=== PATIENT | female | born 1990 | race Caucasian/White ===

== ENCOUNTER 2020-11-14 13:25 | Outpatient (REF) | payer OTHER, SELFPAY | END 2020-11-14 13:26 | disposition home or self-care (01) | LOC: HO.LAB 13:25 | PROVIDERS: Visit Provider Internal Medicine | DX: Z20.822 Contact with and (suspected) exposure to COVID-19 (principal) | CPT/HCPCS: 36415; C9803; U0003 ==

== ENCOUNTER 2020-12-19 15:50 | Outpatient (REF) | payer OTHER, SELFPAY | END 2020-12-19 15:51 | disposition home or self-care (01) | LOC: HO.LAB 15:50 | PROVIDERS: Visit Provider Internal Medicine | DX: Z20.822 Contact with and (suspected) exposure to COVID-19 (principal) | CPT/HCPCS: 36415; C9803; U0003; U0005 ==

== ENCOUNTER 2021-07-12 08:17 | Emergency (ER) | payer OTHER, SELFPAY ==
--- NOTE | ~2021-07-12 | CT_ITS ---
EXAMINATION: CT ABDOMEN AND PELVIS WITH CONTRAST CLINICAL INFORMATION: Right-sided pain and nausea COMPARISON: Previous abdominal ultrasound most recent October [address] of the abdomen and pelvis February 2007 TECHNIQUE: Multidetector volumetric images were obtained from the superior aspect of the liver through the pubic symphysis following administration 85 mL of Omnipaque 350 intravenous contrast. Sagittal and coronal reformatted images were obtained on the technologist's workstation. Oral contrast: Yes This CT examination was performed using dose optimization techniques as appropriate, variously including the following: *Automated exposure control *Adjustment of mA and/or kV according to patient size (this includes techniques or standardized protocols for targeted exams where dose is matched to indication/reason for exam; i.e. extremities or head) *Use of iterative reconstruction technique DLP: 473 mGy-cm FINDINGS: LUNG BASES: The visualized lung bases are unremarkable. LIVER, GALLBLADDER, AND BILIARY TREE: The liver is normal in size, shape, and attenuation. No focal hepatic lesion or biliary ductal dilatation is present. The gallbladder is unremarkable with no evidence of radiopaque gallstones, gallbladder wall thickening, or obvious pericholecystic inflammatory changes. PANCREAS: Unremarkable. SPLEEN: Unremarkable. ADRENAL GLANDS: Unremarkable. KIDNEYS AND URETERS: The kidneys are normal in size, shape, and attenuation. No hydronephrosis, hydroureter, or calculi seen. No perinephric stranding. BLADDER: Not optimally distended. GASTROINTESTINAL TRACT: The small and large bowel are unremarkable. The appendix is unremarkable. ABDOMINAL WALL: There is a small umbilical hernia containing fat. LYMPH NODES: Normal. VASCULAR: Unremarkable. PELVIC VISCERA: Unremarkable. OSSEOUS STRUCTURES: Unremarkable. CT/CT abdomen pelvis w con IMPRESSION: Unremarkable exam.
[2021-07-12 08:20] VITALS: BP 104/73; PULSE 75; RESP 16; TEMP 36.3; O2SAT 98; BMI 29.2
[2021-07-12] MEDS: 0.9 % Sodium Chloride 1,000 ML 999 ML IV ×2 (09:18→11:25)
[2021-07-12] MEDS: ondansetron HCL 4 MG/2 ML VIAL IVPUSH (09:18)
[2021-07-12] MEDS: Ketorolac Tromethamine 15 MG/ML VIAL 30 MG IVPUSH (09:18)
[2021-07-12 09:19] LABS: Basophils Percent Auto 0.3 % (0-2); Eosinophils Absolute Auto 0.1 X10*3/uL (0.0-0.4); Hematocrit 42.4 % (37-47); Imm Gran Abs Auto 0.01 X10*3/uL (0.00-0.03); Imm Gran Pct Auto 0.1 % (0.0-0.4); Lymphocytes Absolute Auto 2.4 X10*3/uL (1.2-4.9); Lymphocytes Percent Auto 33.3 % (20-40); MANUAL DIFF FLAG NO; Mean Corpuscular HGB Conc 35.4 g/dl (31.0-35.0); Mean Corpuscular Hemoglobin 31.4 pg (27.0-33.0); Mean Corpuscular Volume 88.9 fL (80-98); Mean Platelet Volume 10.7 fL (9.4-12.3); Monocytes Absolute Auto 0.4 X10*3/uL (0.1-1.2); Monocytes Percent Auto 5.8 % (2-11); Neutrophils Absolute Auto 4.4 X10*3/uL (2.0-8.3); Neutrophils Percent Auto 59.5 % (45-73); Platelet Count 281 X10*3/uL (160-400); Red Blood Count 4.77 X10*6/uL (4.20-5.50); White Blood Count 7.3 X10*3/uL (4.8-10.8)
[2021-07-12 09:35] LABS: Alanine Aminotransferase 11 U/L (0-31); Albumin Level 4.7 g/dL (3.5-5.0); Alkaline Phosphatase 74 U/L (39-117); Anion Gap 15 (12-20); Aspartate Amino Transferase 12 U/L (5-31); Bilirubin Total 0.9 mg/dL (0.0-1.0); Blood Urea Nitrogen 5 mg/dL (9-16); Carbon Dioxide 24 mmol/L (22-29); Chloride 106 mmol/L (96-108); Creatinine Clr Calc Pharmacy 96.6; Estimated Glomerular Filt Rate > 60; Glucose Random 98 mg/dL (60-115); Lipase 12 U/L (8-78); Potassium 3.9 mmol/L (3.3-5.1); Sodium 141 mmol/L (135-145); Total Protein 7.1 g/dL (6.5-8.0)
[2021-07-12 10:44] LABS: Glucose Urine UA NEG (NEG); Leukocyte Esterase Urine NEG (NEG); Nitrite Urine NEG (NEG); Specific Gravity - Urine 1.015 (1.005-1.025); Urine Blood NEG (NEG); Urine Protein NEG (NEG-TRACE)
[2021-07-12 10:47] LABS: Appearance Urine HAZY; Color Urine YELLOW
[2021-07-12 10:48] LABS: Urine Ketones 15 MG/DL (NEG)
[2021-07-12 10:49] LABS: UPreg QC Valid YES; Urine Pregnancy NEGATIVE (NEGATIVE)
--- NOTE | 2021-07-12 11:06 | ED_ITS ---
HPI - Abdominal Pain General Chief Complaint: Abdominal Pain Stated Complaint: DEHYDRATION Time Seen by Provider: 07/12/21 08:29 Source: patient Mode of arrival: ambulatory Limitations: no limitations History of Present Illness HPI narrative: 30-year-old female who presents emergency department for evaluation of abdominal pain, nausea and dizziness. The patient states that she has been experiencing abdominal pain for approximately 3 months. She states that is gotten worse over the past month. She points to her right upper quadrant and mid epigastric area when asked to localize the pain. The pain is a intermittent cramping sensation that she gets daily and will last all day but does resolve at some point. She states that she has associated nausea constantly with 1 or 2 episodes of vomiting usually in the morning She denied any change in her bowel movements. She states that currently the pain is 10/10. The patient believes that she has lost a significant amount of weight however she states that she was 1 year prior and she is not sure if the weight loss is related to her . She denied fever but occasionally experiences chills. She states that she is constantly lightheaded and dizzy. The patient states that she has also been under stress and has had multiple panic attacks over the past 3-4 months. She states that in the past has been treated with Seroquel and this helped her sleep and help with her anxiety. The patient states that she does smoke 7 pre year old marijuana cigarettes per day and she has done this for years. She has had no abdominal surgeries. She is a G5, P5, she does not believe that she is at this time. Related Data Previous Rx's Medication Instructions Recorded omeprazole 20 mg tablet,delayed 20 mg PO DAILY #30 tab 07/12/21 release ondansetron 4 mg disintegrating 4 mg PO Q6-8H PRN #14 tab 07/12/21 tablet Allergies Allergy/AdvReac Type Severity Reaction Status Date / Time lamotrigine AdvReac Unknown Agitated Verified 07/12/21 08:24 Review of Systems Review of Systems Yes all other systems are reviewed and are negative Physical Exam Vital Signs: Vital Signs: Last Vital Signs Temp 97.3 F 07/12/21 08:20 Pulse 75 07/12/21 08:20 Resp 16 07/12/21 08:20 BP 104/73 07/12/21 08:20 Pulse Ox 98 07/12/21 08:20 Body Mass Index 29.2 Const: General: cooperative and no acute distress Orientation/consciousness: oriented to person and oriented to place Limitations: no limitations HENMT: Head: Yes normal to inspection, Yes normocephalic and Yes atraumatic Ears: external ears normal General nose exam: Normal external nose present Face and sinus: Yes normal facial exam Mouth: Normal oral and palatal mucosa present Throat: Yes posterior oropharynx normal Eyes: General: appearance normal, both eyes and all related structures Pupils: Equal, round and reactive pupils present Neck: Neck: Yes normal visual inspection, Yes no lymphadenopathy, Yes trachea midline and Yes supple Chest: Chest palpation & inspection: normal inspection of the chest and normal palpation of entire chest wall Resp: Effort & Inspection: normal respiratory effort and able to speak in complete sentences Auscultation: clear to auscultation bilaterally Cardio: Rate: regular rate Rhythm: regular rhythm Heart sounds: S1 normal heart sound present, S2 normal heart sound present and no murmurs GI: Inspection: Yes normal to inspection Palpation (GI): Soft to palpation, Tenderness to palpation present (GI) in the epigastrum (Moderate) and in the RUQ (Moderate, negative Freedman sign) and no guarding Auscultation: normal bowel sounds : General: Yes no CVA tenderness Back/Spine/Pelvis: Back: no CVA tenderness Skin: General skin exam: no rashes or lesions noted Neuro: General: oriented to person and oriented to place Cranial nerves: Yes CN's II-XII intact bilaterally and Yes Equal, round and reactive pupils present Cognition (Neuro): normal cognition Motor exam (neuro): 5/5 motor strength present throughout Extrem: General: Yes normal to inspection Psych: Appearance: grossly normal Speech and movement: Normal speech and mo vement present Affect: normal affect Attitude: cooperative Thought process: Normal thought process present Thought content: Normal thought content present Course Course Course Narrative: 30-year-old female who presents emergency department for evaluation of abdominal pain x3 months, worse x1 month, persistent nausea with occasional vomiting 1-2 episodes of vomiting in the morning and dizziness. The patient does smoke marijuana 7 times a day. The differential includes esophagitis, gastritis, biliary disease, marijuana hyperemesis syndrome. I did order normal saline x1 L, Toradol 30 mg IV and Zofran 4 mg IV. Laboratory evaluation and CT scan of the abdomen pelvis with IV contrast was also ordered. 1250: Patient's laboratory evaluation was unremarkable. Urine test was negative. CT scan of the abdomen pelvis with IV contrast revealed no acute abnormalities. Patient's symptoms are most likely secondary to gastritis or esophagitis, marijuana may be also playing part in her symptoms I did discuss this with her. Patient was advised to stop smoking marijuana for least 1 month. She was started on Prilosec 20 mg once a day. She is also given prescription for Zofran 4 mg every 8 hours as needed for nausea and vomiting. She was discharged home. The patient was given verbal and printed instructions prior to discharge. The patient was advised to follow-up with her PCP in 2 days and to return to the emergency department if her symptoms get worse or if she develops any new symptoms that are concerning to her. MDM - Abdominal Pain Lab Data Result diagrams: 07/12/21 09:14 07/12/21 09:14 Labs: Lab Results 07/12/21 07/12/21 07/12/21 Range/Units 09:14 09:14 09:14 WBC 7.3 (4.8-10.8) X10*3/uL RBC 4.77 (4.20-5.50) X10*6/uL Hgb 15.0 (12.0-16.0) g/dl Hct 42.4 (37-47) % MCV 88.9 (80-98) fL MCH 31.4 (27.0-33.0) pg MCHC 35.4 H (31.0-35.0) g/dl RDW 12.0 (11.0-16.0) % Plt Count 281 (160-400) X10*3/uL MPV 10.7 (9.4-12.3) fL Immature Gran % (Auto) 0.1 (0.0-0.4) % Neut % (Auto) 59.5 (45-73) % Lymph % (Auto) 33.3 (20-40) % [place] % (Auto) 5.8 (2-11) % Eos % (Auto) 1.0 (0-4) % Baso % (Auto) 0.3 (0-2) % Lymph # (Auto) 2.4 (1.2-4.9) X10*3/uL [place] # (Auto) 0.4 (0.1-1.2) X10*3/uL Eos # (Auto) 0.1 (0.0-0.4) X10*3/uL Baso # (Auto) 0.0 (0.0-0.2) X10*3/uL Abs Immat Gran (auto) 0.01 (0.00-0.03) X10*3/uL Absolute Neuts (auto) 4.4 (2.0-8.3) X10*3/uL Absolute Nucleated RBC 0.000 (0.0-0.012) X10*3/uL Nucleated RBC % (auto) 0.0 (0.0-0.2) /100WBC Sodium 141 (135-145) mmol/L Potassium 3.9 (3.3-5.1) mmol/L Chloride 106 (96-108) mmol/L Carbon Dioxide 24 (22-29) mmol/L Anion Gap 15 (12-20) BUN 5 L (9-16) mg/dL Creatinine 0.77 (0.5-1.4) mg/dL Estim Creat Clear Calc 96.6 Estimated GFR > 60 Random Glucose 98 (60-115) mg/dL Calcium 10.0 (8.4-10.2) mg/dL Total Bilirubin 0.9 (0.0-1.0) mg/dL AST 12 (5-31) U/L ALT 11 (0-31) U/L Alkaline Phosphatase 74 (39-117) U/L Total Protein 7.1 (6.5-8.0) g/dL Albumin 4.7 (3.5-5.0) g/dL Lipase 12 (8-78) U/L Urine Color Urine Appearance Urine pH (5.0-8.0) Ur Specific [place] (1.005-1.025) Urine Protein (NEG-TRACE) MG/DL Urine Glucose (UA) (NEG) MG/DL Urine Ketones (NEG) MG/DL Urine Blood (NEG) Urine Nitrite (NEG) Ur Leukocyte Esterase (NEG) Urine Test (NEGATIVE) 07/12/21 07/12/21 Range/Units 10:35 10:35 WBC (4.8-10.8) X10*3/uL RBC (4.20-5.50) X10*6/uL Hgb (12.0-16.0) g/dl Hct (37-47) % MCV (80-98) fL MCH (27.0-33.0) pg MCHC (31.0-35.0) g/dl RDW (11.0-16.0) % Plt Count (160-400) X10*3/uL MPV (9.4-12.3) fL Immature Gran % (Auto) (0.0-0.4) % Neut % (Auto) (45-73) % Lymph % (Auto) (20-40) % [place] % (Auto) (2-11) % Eos % (Auto) (0-4) % Baso % (Auto) (0-2) % Lymph # (Auto) (1.2-4.9) X10*3/uL [place] # (Auto) (0.1-1.2) X10*3/uL Eos # (Auto) (0.0-0.4) X10*3/uL Baso # (Auto) (0.0-0.2) X10*3/uL Abs Immat Gran (auto) (0.00-0.03) X10*3/uL Absolute Neuts (auto) (2.0-8.3) X10*3/uL Absolute Nucleated RBC (0.0-0.012) X10*3/uL Nucleated RBC % (auto) (0.0-0.2) /100WBC Sodium (135-145) mmol/L Potassium (3.3-5.1) mmol/L Chloride (96-108) mmol/L Carbon Dioxide (22-29) mmol/L Anion Gap (12-20) BUN (9-16) mg/dL Creatinine (0.5-1.4) mg/dL Estim Creat Clear Calc Estimated GFR Random Glucose (60-115) mg/dL Calcium (8.4-10.2) mg/dL Total Bilirubin (0.0-1.0) mg/dL AST (5-31) U/L ALT (0-31) U/L Alkaline Phosphatase (39-117) U/L Total Protein (6.5-8.0) g/dL Albumin (3.5-5.0) g/dL Lipase (8-78) U/L Urine Color YELLOW Urine Appearance HAZY Urine pH 6.0 (5.0-8.0) Ur Specific [place] 1.015 (1.005-1.025) Urine Protein NEG (NEG-TRACE) MG/DL Urine Glucose (UA) NEG (NEG) MG/DL Urine Ketones 15 (NEG) MG/DL Urine Blood NEG (NEG) Urine Nitrite NEG (NEG) Ur Leukocyte Esterase NEG (NEG) Urine Test NEGATIVE (NEGATIVE) Discharge Plan Discharge Clinical Impression: Acute hyperventilation syndrome Gastritis Qualifiers: Gastritis type: unspecified gastritis Chronicity: acute Gastritis bleeding: without bleeding Qualified Code(s): K29.00 - Acute gastritis without bleeding Patient Disposition: Home, Self-Care Instructions: Hyperventilation (ED), Gastritis (ED) Additional Instructions: Your laboratory evaluation was normal. The CT scan of your abdomen pelvis with IV contrast did not reveal any significant abnormalities. This negative workup is reassuring. Your symptoms are consistent with inflammation of your stomach or your esophagus (gastritis and esophagitis). Take Prilosec (omeprazole) 20 mg pills, 1 pill once a day for 1 month. This medication shuts off the acid production in her stomach and help her stomach and esophagus heal. Take Zofran oral dissolving tablets 4 mg, 1 tablet dissolved in your mouth every 8 hours as needed for nausea and vomiting. Do not take any NSAIDs (ibuprofen, Motrin, Advil, Aleve, or naproxen) while you are taking Prilosec. Take Tylenol (acetaminophen) 500 mg pills, 2 pills every 4 to 6 hours as needed for pain. You should discuss treatment of your anxiety a and your insomnia with your doctor to see if they will restart Seroquel or another medication that will help you with the symptoms. Follow-up with your doctor in 2 days. Please return to the emergency department if your symptoms get worse or if you develop any symptoms that are concerning to you. Prescriptions: New ondansetron 4 mg tablet,disintegrating 4 mg PO Q6-8H PRN (Reason: nausea and vomiting) Qty: 14 RF: 0 omeprazole 20 mg tablet,delayed release (DR/EC) 20 mg PO DAILY Qty: 30 RF: 0 PMFSH Past Medical History Medical History (Updated 07/12/21 @ 12:54 by Irineo Hernandez MD) No known health problems Social History Social History Use of substances other than those prescribed or required for medical reasons: Yes Substance Use Type: Marijuana Advance Directives: No Advance Directives Information Provided: No Patient : No
[2021-07-12] MEDS: Morphine Sulfate 4 MG/ML CARTRIDGE IVPUSH (11:22)
[2021-07-12] MEDS: iohexoL 350 MG/ML 100 ML INFUS..BTL IV (11:56)
== END 2021-07-12 13:12 | disposition home or self-care (01) ==
PROVIDERS: Emergency Provider Emergency Medicine Emergency Medical Services; PCP Physician Assistant
DX: K29.00 Acute gastritis without bleeding (principal); F45.8 Other somatoform disorders; E86.0 Dehydration; R10.9 Unspecified abdominal pain; Z79.899 Other long term (current) drug therapy
CPT/HCPCS: 36415; 74177; 80053; 81003; 81025; 83690; 85025; 96365; 96375; 99284; J1885; J2270; J2405; Q9967

== ENCOUNTER 2021-08-07 11:40 | Outpatient (REF) | payer OTHER, SELFPAY | END 2021-08-07 11:41 | disposition home or self-care (01) | LOC: HO.LAB 11:40 | PROVIDERS: PCP Physician Assistant; Visit Provider Internal Medicine | DX: Z20.822 Contact with and (suspected) exposure to COVID-19 (principal) | CPT/HCPCS: C9803; U0003; U0005 ==

== ENCOUNTER 2021-08-24 15:41 | Outpatient (REF) | payer OTHER, SELFPAY | END 2021-08-24 15:42 | disposition home or self-care (01) | LOC: HO.LAB 15:41 | PROVIDERS: Visit Provider Internal Medicine | DX: Z20.822 Contact with and (suspected) exposure to COVID-19 (principal) | CPT/HCPCS: C9803; U0003; U0005 ==

== ENCOUNTER 2021-11-18 07:48 | Emergency (ER) | payer OTHER, SELFPAY ==
--- NOTE | ~2021-11-18 | US_ITS ---
EXAMINATION: US ABDOMEN LIMITED CLINICAL INFORMATION: Left-sided abdominal pain. Rule out kidney stone.. COMPARISON: October 30, [address] scan of July 12, 2021 TECHNIQUE: Real-time imaging of the right upper quadrant abdominal viscera. FINDINGS: PANCREAS: Visualized portions are unremarkable without evidence of mass or peripancreatic inflammatory change. The tail is obscured by overlying bowel gas. Left KIDNEY: Normal. No hydronephrosis. No renal calculi or focal parenchymal lesions. The kidney measures 10.7 cm in maximum dimension. FREE FLUID: None. US/US abdomen limited IMPRESSION: No evidence of left nephrolithiasis or hydronephrosis.
[2021-11-18 07:56] VITALS: BP 140/68; PULSE 92; RESP 19; TEMP 36.6; O2SAT 97; BMI 26.4
--- NOTE | 2021-11-18 08:55 | ED_ITS ---
HPI - Abdominal Pain General Chief Complaint: Abdominal Pain Stated Complaint: l side pain Time Seen by Provider: 11/18/21 08:50 Source: patient Mode of arrival: ambulatory Limitations: no limitations History of Present Illness HPI narrative: 31-year-old female came in for evaluation of abdominal pain. Pain started few weeks ago in the left upper quadrant/left flank area pain described as throbbing pain, pain is intermittent comes and goes, sometimes radiate down to the left lower quadrant area, no aggravating factor, no relieving factors, pain usually associated with palpitation, patient has no fever, no chills. Patient on defer shot for contraception not get her menstruation normally. No past abdominal surgical history. Related Data Previous Rx's Medication Instructions Recorded omeprazole 20 mg tablet,delayed 20 mg PO DAILY #30 tab 07/12/21 release ondansetron 4 mg disintegrating 4 mg PO Q6-8H PRN #14 tab 07/12/21 tablet baclofen 5 mg tablet 5 mg PO BID PRN 7 Days #14 tab 08/05/21 Allergies Allergy/AdvReac Type Severity Reaction Status Date / Time lamotrigine AdvReac Unknown Agitated Verified 08/05/21 16:11 Review of Systems Review of Systems All other systems are reviewed and are negative Constitutional: Reports as per HPI and Reports no additional constitutional complaints Eyes: Reports as per HPI and Reports no additional eye complaints Reports system reviewed and no additional complaints, except as documented Cardiovascular: Reports as per HPI and Reports no additional cardiovascular complaints Respiratory: Reports as per HPI and Reports no additional respiratory complaints Gastrointestinal: Reports as per HPI and Reports no additional gastrointestinal complaints Genitourinary: Reports no additional female genitourinary complaints Musculoskeletal: Reports no additional musculoskeletal complaints Skin/Breast: Reports system reviewed and no additional complaints, except as docu Psychiatric: Reports no additional psychiatric complaints Endocrine: Reports no additional endocrine complaints Hematologic/Lymphatic: Reports no additional hematologic/lymphatic complaints Allergic/Immunologic: Reports no additional allergic/immunologic complaints Reports system reviewed and no additional complaints, except as documented and Reports Abnormal speech present Physical Exam Vital Signs: Vital Signs: Last Vital Signs Temp 98.6 F 11/18/21 10:20 Pulse 70 11/18/21 10:20 Resp 15 11/18/21 10:20 BP 119/65 11/18/21 10:20 Pulse Ox 99 11/18/21 10:20 BMI result Body Mass Index 26.4 Vital signs have been reviewed as appeared to be correct. Blood pressure normal. Heart rate normal. Respiration rate normal. Temperature normal. Oxygen saturation normal. Appearance: Alert. Oriented X3. No acute distress. Head: Normal external exam. Normocephalic. Atraumatic. No Harper signs noted. No raccoon eyes noted Eyes: PERRLA. EOMI. Conjunctiva and sclera normal. Eyelids normal. ENT: TM's Normal. Pharynx normal. Uvula midline. Moist mucous membranes. No trismus noted. No drooling noted. No muffled voice noted. Neck: Normal inspection. Neck supple. FROM. No adenopathy. Thyroid Normal. No meningeal signs. No neck mass noted. CVS: Normal heart rate and rhythm. Heart sound normal. No murmurs noted. Pulses normal throughout. Respiratory: No respiratory distress. Painless inspiration. Breath sounds normal. No wheezes/rales/rhonchi noted. Chest nontender. No accessory muscle usage noted or decreased air movement noted. Abdomen: Soft, left upper quadrant tenderness, no rebound tenderness, no guarding. Bowel sounds normal in all 4 quadrants. No distention noted. No organomegaly noted. No visible injury noted. Back: Left CVA tenderness. Full range of motion noted. Skin: Skin warm and dry. Normal skin color. Normal skin turgor. No rashes/lesions/lacerations noted. Extremities: No lower extremity edema. Extremities exhibit normal range of motion. Extremities nontender. Neuro: Oriented X 3. Cranial nerve exam: II-XII are grossly intact No motor deficit. No sensory deficit. Reflexes normal. Course Course Course Narrative: Assessment and plan. 31-year-old female came in for evaluation of left-sided abdominal pain for few weeks, patient had a negative workup for the pain including labs/UA/ultrasound of the abdomen pelvis. Discussed with the patient to follow up with her PCP, seek medical attention if symptoms is worsening. MDM - Abdominal Pain Lab Data Attestation: I reviewed the patient's lab results. Result diagrams: 11/18/21 09:51 11/18/21 09:51 Labs: Lab Results 11/18/21 11/18/21 11/18/21 Range/Units 09:51 09:51 09:51 WBC 6.4 (4.8-10.8) X10*3/uL RBC 4.62 (4.20-5.50) X10*6/uL Hgb 14.6 (12.0-16.0) g/dl Hct 41.8 (37.0-47.0) % MCV 90.5 (80.0-98.0) fL MCH 31.6 (27.0-33.0) pg MCHC 34.9 (31.0-35.0) g/dl RDW 11.6 (11.0-16.0) % Plt Count 278 (160-400) X10*3/uL MPV 10.4 (9.4-12.3) fL Immature Gran % (Auto) 0.3 (0.0-0.4) % Neut % (Auto) 58.8 (45-73) % Lymph % (Auto) 34.8 (20-40) % [place] % (Auto) 4.7 (2-11) % Eos % (Auto) 1.1 (0-4) % Baso % (Auto) 0.3 (0-2) % Lymph # (Auto) 2.2 (1.2-4.9) X10*3/uL [place] # (Auto) 0.3 (0.1-1.2) X10*3/uL Eos # (Auto) 0.1 (0.0-0.4) X10*3/uL Baso # (Auto) 0.0 (0.0-0.2) X10*3/uL Abs Immat Gran (auto) 0.02 (0.00-0.03) X10*3/uL Absolute Neuts (auto) 3.8 (2.0-8.3) x10*3/uL Absolute Nucleated RBC 0.000 (0.0-0.012) X10*3/uL Nucleated RBC % (auto) 0.0 (0.0-0.2) /100WBC Sodium 139 (135-145) mmol/L Potassium 4.3 (3.3-5.1) mmol/L Chloride 106 (96-108) mmol/L Carbon Dioxide 27 (22-29) mmol/L Anion Gap 10 L (12-20) BUN 12 (9-16) mg/dL Creatinine 0.77 (0.5-1.4) mg/dL Estim Creat Clear Calc 91.2 Estimated GFR > 60 Random Glucose 91 (60-115) mg/dL Calcium 9.8 (8.4-10.2) mg/dL Total Bilirubin 0.8 (0.0-1.0) mg/dL Direct Bilirubin 0.3 (0.0-0.5) mg/dL AST 14 (5-31) U/L ALT 24 (0-31) U/L Alkaline Phosphatase 64 (39-117) U/L Total Protein 7.3 (6.5-8.0) g/dL Albumin 4.5 (3.5-5.0) g/dL Lipase 17 (8-78) U/L Urine Color YELLOW Urine Appearance CLEAR Urine pH 6.0 (5.0-8.0) Ur Specific [place] 1.020 (1.005-1.025) Urine Protein NEG (NEG-TRACE) MG/DL Urine Glucose (UA) NEG (NEG) MG/DL Urine Ketones NEG (NEG) MG/DL Urine Blood NEG (NEG) Urine Nitrite NEG (NEG) Ur Leukocyte Esterase NEG (NEG) Urine Test (NEGATIVE) 11/18/21 Range/Units 09:51 WBC (4.8-10.8) X10*3/uL RBC (4.20-5.50) X10*6/uL Hgb (12.0-16.0) g/dl Hct (37.0-47.0) % MCV (80.0-98.0) fL MCH (27.0-33.0) pg MCHC (31.0-35.0) g/dl RDW (11.0-16.0) % Plt Count (160-400) X10*3/uL MPV (9.4-12.3) fL Immature Gran % (Auto) (0.0-0.4) % Neut % (Auto) (45-73) % Lymph % (Auto) (20-40) % [place] % (Auto) (2-11) % Eos % (Auto) (0-4) % Baso % (Auto) (0-2) % Lymph # (Auto) (1.2-4.9) X10*3/uL [place] # (Auto) (0.1-1.2) X10*3/uL Eos # (Auto) (0.0-0.4) X10*3/uL Baso # (Auto) (0.0-0.2) X10*3/uL Abs Immat Gran (auto) (0.00-0.03) X10*3/uL Absolute Neuts (auto) (2.0-8.3) x10*3/uL Absolute Nucleated RBC (0.0-0.012) X10*3/uL Nucleated RBC % (auto) (0.0-0.2) /100WBC Sodium (135-145) mmol/L Potassium (3.3-5.1) mmol/L Chloride (96-108) mmol/L Carbon Dioxide (22-29) mmol/L Anion Gap (12-20) BUN (9-16) mg/dL Creatinine (0.5-1.4) mg/dL Estim Creat Clear Calc Estimated GFR Random Glucose (60-115) mg/dL Calcium (8.4-10.2) mg/dL Total Bilirubin (0.0-1.0) mg/dL Direct Bilirubin (0.0-0.5) mg/dL AST (5-31) U/L ALT (0-31) U/L Alkaline Phosphatase (39-117) U/L Total Protein (6.5-8.0) g/dL Albumin (3.5-5.0) g/dL Lipase (8-78) U/L Urine Color Urine Appearance Urine pH (5.0-8.0) Ur Specific [place] (1.005-1.025) Urine Protein (NEG-TRACE) MG/DL Urine Glucose (UA) (NEG) MG/DL Urine Ketones (NEG) MG/DL Urine Blood (NEG) Urine Nitrite (NEG) Ur Leukocyte Esterase (NEG) Urine Test NEGATIVE (NEGATIVE) Imaging Data US - abdomen: Attestation: I personally reviewed and interpreted this imaging study as follows: Radiologist's impression: No evidence of left nephrolithiasis or hydronephrosis. Discharge Plan Discharge Clinical Impression: Abdominal pain Patient Disposition: Home, Self-Care Instructions: Abdominal Pain (ED) Prescriptions: No Action ondansetron 4 mg tablet,disintegrating 4 mg PO Q6-8H PRN (Reason: nausea and vomiting) Qty: 14 RF: 0 omeprazole 20 mg tablet,delayed release (DR/EC) 20 mg PO DAILY Qty: 30 RF: 0 baclofen 5 mg tablet 5 mg PO BID PRN (Reason: pain (scale score 7-10)) 7 Days Qty: 14 RF: 0 Referrals: Pepe Rose PA-C [Primary Care Provider] - 2 days Stand Alone Forms: Work/School Release [facility] Past Medical History Medical History No known health problems Social History Social History Housing: Apartment Patient Tobacco Use Status: Never used Tobacco Tobacco use type: Cigarette e-Cigarette/Vaping Use: Never Used Second Hand Smoke Exposure: No Substance Use Type: Marijuana Advance Directives: No Advance Directives Information Provided: Yes Patient : No service: No
[2021-11-18 09:58] LABS: MANUAL DIFF FLAG NO
[2021-11-18 10:02] LABS: Appearance Urine CLEAR; Color Urine YELLOW; Glucose Urine UA NEG (NEG); Leukocyte Esterase Urine NEG (NEG); Nitrite Urine NEG (NEG); UPreg QC Valid YES; Urine Blood NEG (NEG); Urine Ketones NEG (NEG); Urine Pregnancy NEGATIVE (NEGATIVE); Urine Protein NEG (NEG-TRACE)
[2021-11-18 10:11] LABS: Basophils Percent Auto 0.3 % (0-2); Eosinophils Absolute Auto 0.1 X10*3/uL (0.0-0.4); Eosinophils Percent Auto 1.1 % (0-4); Hematocrit 41.8 % (37.0-47.0); Hemoglobin 14.6 g/dl (12.0-16.0); Imm Gran Abs Auto 0.02 X10*3/uL (0.00-0.03); Imm Gran Pct Auto 0.3 % (0.0-0.4); Lymphocytes Absolute Auto 2.2 X10*3/uL (1.2-4.9); Lymphocytes Percent Auto 34.8 % (20-40); Mean Corpuscular HGB Conc 34.9 g/dl (31.0-35.0); Mean Corpuscular Hemoglobin 31.6 pg (27.0-33.0); Mean Corpuscular Volume 90.5 fL (80.0-98.0); Mean Platelet Volume 10.4 fL (9.4-12.3); Monocytes Absolute Auto 0.3 X10*3/uL (0.1-1.2); Monocytes Percent Auto 4.7 % (2-11); Neutrophils Absolute Auto 3.8 x10*3/uL (2.0-8.3); Neutrophils Percent Auto 58.8 % (45-73); Platelet Count 278 X10*3/uL (160-400); Red Blood Count 4.62 X10*6/uL (4.20-5.50); Red Cell Distribution Width 11.6 % (11.0-16.0); White Blood Count 6.4 X10*3/uL (4.8-10.8)
[2021-11-18 10:18] LABS: Alanine Aminotransferase 24 U/L (0-31); Albumin Level 4.5 g/dL (3.5-5.0); Alkaline Phosphatase 64 U/L (39-117); Anion Gap 10 (12-20); Aspartate Amino Transferase 14 U/L (5-31); Bilirubin Direct 0.3 mg/dL (0.0-0.5); Bilirubin Total 0.8 mg/dL (0.0-1.0); Blood Urea Nitrogen 12 mg/dL (9-16); Calcium 9.8 mg/dL (8.4-10.2); Carbon Dioxide 27 mmol/L (22-29); Chloride 106 mmol/L (96-108); Creatinine Clr Calc Pharmacy 91.2; Estimated Glomerular Filt Rate > 60; Glucose Random 91 mg/dL (60-115); Lipase 17 U/L (8-78); Potassium 4.3 mmol/L (3.3-5.1); Sodium 139 mmol/L (135-145); Total Protein 7.3 g/dL (6.5-8.0)
[2021-11-18 10:20] VITALS: BP 119/65; PULSE 70; RESP 15; TEMP 37; O2SAT 99
== END 2021-11-18 11:39 | disposition home or self-care (01) ==
PROVIDERS: Emergency Provider Emergency Medicine; PCP Physician Assistant
DX: R10.9 Unspecified abdominal pain (principal); Z87.891 Personal history of nicotine dependence
CPT/HCPCS: 36415; 76705; 80048; 80076; 81003; 81025; 83690; 85025; 99283; 99284

== ENCOUNTER 2021-12-01 09:22 | Emergency (ER) | payer OTHER, SELFPAY ==
--- NOTE | ~2021-12-01 | CT_ITS ---
EXAMINATION: CT ABDOMEN AND PELVIS WITH CONTRAST CLINICAL INFORMATION: Abdominal pain COMPARISON: Previous CT of the abdomen and pelvis most recent July 2021 and abdominal October 2019 and left-sided abdominal ultrasound November 2021 TECHNIQUE: Multidetector volumetric images were obtained from the superior aspect of the liver through the pubic symphysis following administration 85 mL of Omnipaque 350 intravenous contrast. Sagittal and coronal reformatted images were obtained on the technologist's workstation. Oral contrast: Yes This CT examination was performed using dose optimization techniques as appropriate, variously including the following: *Automated exposure control *Adjustment of mA and/or kV according to patient size (this includes techniques or standardized protocols for targeted exams where dose is matched to indication/reason for exam; i.e. extremities or head) *Use of iterative reconstruction technique DLP: 5.8 mGy-cm FINDINGS: LUNG BASES: The visualized lung bases are unremarkable. LIVER, GALLBLADDER, AND BILIARY TREE: The liver is normal in size, shape, and attenuation. No focal hepatic lesion or biliary ductal dilatation is present. The gallbladder is unremarkable with no evidence of radiopaque gallstones, gallbladder wall thickening, or obvious pericholecystic inflammatory changes. PANCREAS: Unremarkable. SPLEEN: Unremarkable. ADRENAL GLANDS: Unremarkable. KIDNEYS AND URETERS: The kidneys are normal in size, shape, and attenuation. No hydronephrosis, hydroureter, or calculi seen. No perinephric stranding. BLADDER: Unremarkable. GASTROINTESTINAL TRACT: The small and large bowel are unremarkable. The appendix is unremarkable. ABDOMINAL WALL: No significant hernia is appreciated. LYMPH NODES: Normal. VASCULAR: Unremarkable. PELVIC VISCERA: Unremarkable. OSSEOUS STRUCTURES: Unremarkable. CT/CT abdomen pelvis w con IMPRESSION: Unremarkable exam. Fleischner guidelines were followed.
[2021-12-01 09:28] VITALS: BP 100/51; PULSE 69; RESP 19; TEMP 36.6; O2SAT 100; BMI 26.8
--- NOTE | 2021-12-01 10:30 | ED_ITS ---
HPI - Abdominal Pain General Chief Complaint: Abdominal Pain <EVER Drew Last Filed: 12/01/21 15:19> Stated Complaint: flank pain <EVER Drew Last Filed: 12/01/21 15:19> Time Seen by Provider: 12/01/21 09:56 <EVER Drew Last Filed: 12/01/21 15:19> Source: patient <EVER Drew Last Filed: 12/01/21 15:19> Mode of arrival: ambulatory <EVER Drew Last Filed: 12/01/21 15:19> Limitations: no limitations <EVER Drew Last Filed: 12/01/21 15:19> History of Present Illness HPI narrative: Patient is a 31 year old female presenting to the emergency department today with left-sided flank pain and low back pain. Patient states that the last few weeks, she has had intermittent low back pain on the left side, that radiates down into her lower leg. Additionally, she has had left flank pain that wraps around to the front of her abdomen. Patient states she was evaluated in urgent care, where they recommended an abdominal CT. Patient denies any dizziness, lightheadedness, nausea, vomiting, fever, chills, blurry vision, double vision, loss of vision, chest pain, difficulty breathing, shortness of breath, night sweats, vaginal bleeding, vaginal discharge, pain with urination, increased urinary frequency, increased urinary urgency, blood in her urine or stool, syncope or a near syncopal episode, recent trauma or falls, bowel incontinence, bladder incontinence, bowel retention, bladder retention, or any other complaints at this time. = <EVER Drew - Last Filed: 12/01/21 15:19> MD elicited complaint: abdominal pain and flank pain <EVER Drew Last Filed: 12/01/21 15:19> Pertinent past history: none <EVER Drew Last Filed: 12/01/21 15:19> Onset (ago): week(s) (Intermittently) <EVER Drew Last Filed: 12/01/21 15:19> Pain Consistency: intermittent <EVER Drew Last Filed: 12/01/21 15:19> Location: L flank <EVER Drew - Last Filed: 12/01/21 15:19> Severity: mild <EVER Drew - Last Filed: 12/01/21 15:19> Quality: dull <EVER Drew - Last Filed: 12/01/21 15:19> Radiation: LLQ and other (Left lower leg) <EVER Drew - Last Filed: 12/01/21 15:19> Relieving factors: nothing <EVER Drew - Last Filed: 12/01/21 15:19> Associated symptoms: other (Radiating pain down her left leg) <EVER Drew - Last Filed: 12/01/21 15:19> Related Data Home Medications: Previous Rx's Medication Instructions Recorded omeprazole 20 mg tablet,delayed 20 mg PO DAILY #30 tab 07/12/21 release ondansetron 4 mg disintegrating 4 mg PO Q6-8H PRN #14 tab 07/12/21 tablet baclofen 5 mg tablet 5 mg PO BID PRN 7 Days #14 tab 08/05/21 cyclobenzaprine 10 mg tablet 10 mg PO TID PRN 7 Days #21 tab 12/01/21 <EVER Drew - Last Filed: 12/01/21 15:19> Allergies/Adverse Reactions: Allergies Allergy/AdvReac Type Severity Reaction Status Date / Time lamotrigine AdvReac Unknown Agitated Verified 12/01/21 09:08 <EVER Drew - Last Filed: 12/01/21 15:19> Review of Systems Constitutional: Reports no additional constitutional complaints, Denies chills, Denies fever(s) and Denies night sweats <EVER Drew - Last Filed: 12/01/21 15:19> Eyes: Reports no additional eye complaints, Denies blurry vision, Denies change in vision, Denies diplopia, Denies eye discharge, Denies loss of vision and Denies eye pain <EVER Drew - Last Filed: 12/01/21 15:19> Denies dizziness <EVER Drew - Last Filed: 12/01/21 15:19> Cardiovascular: Reports no additional cardiovascular complaints, Denies chest pain, Denies lightheadedness, Denies Loss of Consciousness and Denies dyspnea <EVER Drew - Last Filed: 12/01/21 15:19> Respiratory: Reports no additional respiratory complaints and Denies dyspnea <EVER Drew - Last Filed: 12/01/21 15:19> Gastrointestinal: Reports no additional gastrointestinal complaints, Reports abdominal pain (Left lower quadrant and left flank pain), Denies melena, Denies hematochezia, Denies change in bowel habits and Denies change in stool character <EVER Drew - Last Filed: 12/01/21 15:19> Genitourinary: Denies hematuria, Denies urinary frequency, Denies dysuria, Denies urinary incontinence, Denies urinary hesitancy and Denies urinary urgency <EVER Drew - Last Filed: 12/01/21 15:19> Musculoskeletal: Reports no additional musculoskeletal complaints, Reports back pain, Denies numbness and Denies tingling <EVER Drew - Last Filed: 12/01/21 15:19> Denies dizziness, Denies loss of vision, Denies numbness and Denies tingling <EVER Drew - Last Filed: 12/01/21 15:19> Psychiatric: Reports no additional psychiatric complaints <EVER Drew - Last Filed: 12/01/21 15:19> Endocrine: Reports no additional endocrine complaints <EVER Drew - Last Filed: 12/01/21 15:19> Hematologic/Lymphatic: Reports no additional hematologic/lymphatic complaints <EVER Drew - Last Filed: 12/01/21 15:19> Allergic/Immunologic: Reports no additional allergic/immunologic complaints <EVER Drew - Last Filed: 12/01/21 15:19> Physical Exam Vital Signs: Vital Signs: Last Vital Signs Temp 98.6 F 12/01/21 15:26 Pulse 59 12/01/21 15:26 Resp 16 12/01/21 15:26 BP 104/57 L 12/01/21 15:26 Pulse Ox 100 12/01/21 15:26 BMI result Body Mass Index 26.8 <EVER Drew - Last Filed: 12/01/21 15:19> Vital Signs: Last Vital Signs Temp 98.6 F 12/01/21 15:26 Pulse 59 12/01/21 15:26 Resp 16 12/01/21 15:26 BP 104/57 L 12/01/21 15:26 Pulse Ox 100 12/01/21 15:26 BMI result Body Mass Index 26.8 <Marlon Malagon MD - Last Filed: 12/01/21 16:00> Const: General: cooperative, no acute distress, alert and awake <EVER Drew - Last Filed: 12/01/21 15:19> Nutritional Appearance: well nourished <EVER Drew - Last Filed: 12/01/21 15:19> Orientation/consciousness: patient oriented x3 <EVER Drew - Last Filed: 12/01/21 15:19> Limitations: no limitations <EVER Drew - Last Filed: 12/01/21 15:19> HENMT: Head: Yes normal to inspection and Yes atraumatic <EVER Drew - Last Filed: 12/01/21 15:19> Ears: hearing grossly normal bilaterally and external ears normal <EVER Drew - Last Filed: 12/01/21 15:19> General nose exam: Normal external nose present, no nasal discharge noted and no epistaxis <EVER Drew - Last Filed: 12/01/21 15:19> Face and sinus: Yes normal facial exam, No abrasion and No laceration <EVER Drew - Last Filed: 12/01/21 15:19> Mouth: Normal oral and palatal mucosa present, no drooling and no muffled voice <EVER Drew - Last Filed: 12/01/21 15:19> Eyes: General: appearance normal, both eyes and all related structures <EVER Drew - Last Filed: 12/01/21 15:19> Periorbital: periorbital findings normal <EVER Drew - Last Filed: 12/01/21 15:19> Eyelids: Yes eyelids normal <EVER Drew - Last Filed: 12/01/21 15:19> Conjunctivae: conjunctivae normal <EVER Drew - Last Filed: 12/01/21 15:19> Pupils: Equal, round and reactive pupils present <Dinora Mena PA - Last Filed: 12/01/21 15:19> EOM: EOMs intact bilaterally <Dinora Mena MS - Last Filed: 12/01/21 15:19> Neck: Neck: Yes normal visual inspection, Yes full ROM and Yes no lymphadenopathy <Dinora Mena MS - Last Filed: 12/01/21 15:19> Chest: Chest palpation & inspection: normal inspection of the chest <Dinora Mena PA - Last Filed: 12/01/21 15:19> Resp: Effort & Inspection: normal respiratory effort and able to speak in complete sentences <Dinora Mena MS - Last Filed: 12/01/21 15:19> Auscultation: clear to auscultation bilaterally <Dinora Mena MS - Last Filed: 12/01/21 15:19> Cardio: Rate: regular rate <Dinora Mena MS - Last Filed: 12/01/21 15:19> Rhythm: regular rhythm <Dinora Mena MS - Last Filed: 12/01/21 15:19> GI: Inspection: Yes normal to inspection <Dinora Mena MS - Last Filed: 12/01/21 15:19> Palpation (GI): Soft to palpation, not firm and nontender <Dinora Mena MS - Last Filed: 12/01/21 15:19> Auscultation: normal bowel sounds <Dinora Mena MS - Last Filed: 12/01/21 15:19> Neuro: General: patient oriented x3 and moves all extremities <Dinora Mena MS - Last Filed: 12/01/21 15:19> Cranial nerves: Yes Equal, round and reactive pupils present <Dinora Mena MS - Last Filed: 12/01/21 15:19> Cognition (Neuro): normal cognition <Dinora Mena MS - Last Filed: 12/01/21 15:19> Motor exam (neuro): 5/5 motor strength present throughout <Dinora Mena PA - Last Filed: 12/01/21 15:19> Sensory Exam: Normal double simultaneous stimulation for sensation <Dinora Mena MS - Last Filed: 12/01/21 15:19> Coordination: [id number] test normal <Dinora MenaEVER Renard Last Filed: 12/01/21 15:19> Extrem: General: Yes normal to inspection, Yes full ROM and Yes capillary refill normal <Dinora MenaEVER Renard Last Filed: 12/01/21 15:19> Psych: Appearance: grossly normal <Dinora MenaEVER Last Filed: 12/01/21 15:19> Mental Status: mental status grossly normal <Dinora MenaEVER Last Filed: 12/01/21 15:19> Affect: normal affect <Dinoar MenaEVER Last Filed: 12/01/21 15:19> Attitude: cooperative <Dinora MenaEVER Last Filed: 12/01/21 15:19> Thought process: Normal thought process present <Dinora MenaEVER Renard Last Filed: 12/01/21 15:19> Thought content: Normal thought content present <Dinora MenaEVER Last Filed: 12/01/21 15:19> Insight: Good insight present (Psych) <Dinora MenaEVER Last Filed: 12/01/21 15:19> Course Course Course Narrative: Patient's CT abdomen was considered unremarkable by the radiologist. <Dinora MenaEVER Renard Last Filed: 12/01/21 15:19> MDM - Abdominal Pain MDM Narrative Medical decision making narrative: Patient is a 31 year old female presenting to the emergency department today with left flank pain and left lower back pain. Patient's physical exam was unremarkable. Patient's blood work was unremarkable. Patient's urine showed no acute process. Patient's abdominal CT showed no acute process. I explained my physical exam findings as well as all test results to the patient. I answered all questions asked by the patient. Patient received IM Toradol and p.o. Flexeril which she stated helped her symptoms significantly. I stressed the importance of the patient taking her medication as prescribed. I stressed the importance of the patient following up with her primary care provider. I str essed the importance of the patient returning to the emergency department immediately if her symptoms were to worsen or if she were to develop any dizziness, shortness of breath, difficulty breathing, chest pain, blurry vision, loss of vision, nausea, vomiting, abdominal pain, fever, chills, back pain, or any other complaints. Patient verbalized agreement and understanding with this treatment plan and discharge. <EVER Drew - Last Filed: 12/01/21 15:19> Differential Diagnosis Differential diagnosis: Likely abdominal pain <EVER Drew - Last Filed: 12/01/21 15:19> Differential diagnosis narrative:: Left flank pain, sciatic nerve pain <EVER Drew - Last Filed: 12/01/21 15:19> Medical Records Attestation: I reviewed the patient's medical records. <EVER Drew - Last Filed: 12/01/21 15:19> Lab Data Attestation: I reviewed the patient's lab results. <EVER Drew - Last Filed: 12/01/21 15:19> Result diagrams: : 12/01/21 12:17 12/01/21 12:17 <EVER Drew - Last Filed: 12/01/21 15:19> Labs: Lab Results 12/01/21 12/01/21 12/01/21 Range/Units 11:51 11:51 12:17 WBC 7.0 (4.8-10.8) X10*3/uL RBC 4.55 (4.20-5.50) X10*6/uL Hgb 14.2 (12.0-16.0) g/dl Hct 41.5 (37.0-47.0) % MCV 91.2 (80.0-98.0) fL MCH 31.2 (27.0-33.0) pg MCHC 34.2 (31.0-35.0) g/dl RDW 11.7 (11.0-16.0) % Plt Count 242 (160-400) X10*3/uL MPV 10.9 (9.4-12.3) fL Immature Gran % (Auto) 0.1 (0.0-0.4) % Neut % (Auto) 56.4 (45-73) % Lymph % (Auto) 37.4 (20-40) % [place] % (Auto) 5.0 (2-11) % Eos % (Auto) 1.0 (0-4) % Baso % (Auto) 0.1 (0-2) % Lymph # (Auto) 2.6 (1.2-4.9) X10*3/uL [place] # (Auto) 0.4 (0.1-1.2) X10*3/uL Eos # (Auto) 0.1 (0.0-0.4) X10*3/uL Baso # (Auto) 0.0 (0.0-0.2) X10*3/uL Abs Immat Gran (auto) 0.01 (0.00-0.03) X10*3/uL Absolute Neuts (auto) 3.9 (2.0-8.3) x10*3/uL Absolute Nucleated RBC 0.000 (0.0-0.012) X10*3/uL Nucleated RBC % (auto) 0.0 (0.0-0.2) /100WBC Sodium (135-145) mmol/L Potassium (3.3-5.1) mmol/L Chloride (96-108) mmol/L Carbon Dioxide (22-29) mmol/L Anion Gap (12-20) BUN (9-16) mg/dL Creatinine (0.5-1.4) mg/dL Estim Creat Clear Calc Estimated GFR Fasting Glucose (60-99) mg/dL Lactic Acid (0.5-2.0) mmol/L Calcium (8.4-10.2) mg/dL Magnesium (1.6-2.6) mg/dL Total Bilirubin (0.0-1.0) mg/dL AST (5-31) U/L ALT (0-31) U/L Alkaline Phosphatase (39-117) U/L Total Protein (6.5-8.0) g/dL Albumin (3.5-5.0) g/dL Lipase (8-78) U/L Urine Color YELLOW Urine Appearance CLEAR Urine pH 6.0 (5.0-8.0) Ur Specific [place] 1.025 (1.005-1.025) Urine Protein NEG (NEG-TRACE) MG/DL Urine Glucose (UA) NEG (NEG) MG/DL Urine Ketones NEG (NEG) MG/DL Urine Blood NEG (NEG) Urine Nitrite NEG (NEG) Ur Leukocyte Esterase NEG (NEG) Urine Test NEGATIVE (NEGATIVE) 12/01/21 12/01/21 Range/Units 12:17 12:17 WBC (4.8-10.8) X10*3/uL RBC (4.20-5.50) X10*6/uL Hgb (12.0-16.0) g/dl Hct (37.0-47.0) % MCV (80.0-98.0) fL MCH (27.0-33.0) pg MCHC (31.0-35.0) g/dl RDW (11.0-16.0) % Plt Count (160-400) X10*3/uL MPV (9.4-12.3) fL Immature Gran % (Auto) (0.0-0.4) % Neut % (Auto) (45-73) % Lymph % (Auto) (20-40) % [place] % (Auto) (2-11) % Eos % (Auto) (0-4) % Baso % (Auto) (0-2) % Lymph # (Auto) (1.2-4.9) X10*3/uL [place] # (Auto) (0.1-1.2) X10*3/uL Eos # (Auto) (0.0-0.4) X10*3/uL Baso # (Auto) (0.0-0.2) X10*3/uL Abs Immat Gran (auto) (0.00-0.03) X10*3/uL Absolute Neuts (auto) (2.0-8.3) x10*3/uL Absolute Nucleated RBC (0.0-0.012) X10*3/uL Nucleated RBC % (auto) (0.0-0.2) /100WBC Sodium 141 (135-145) mmol/L Potassium 4.3 (3.3-5.1) mmol/L Chloride 109 H (96-108) mmol/L Carbon Dioxide 27 (22-29) mmol/L Anion Gap 9 L (12-20) BUN 8 L (9-16) mg/dL Creatinine 0.74 (0.5-1.4) mg/dL Estim Creat Clear Calc 95.5 Estimated GFR > 60 Fasting Glucose 95 (60-99) mg/dL Lactic Acid 0.5 (0.5-2.0) mmol/L Calcium 9.5 (8.4-10.2) mg/dL Magnesium 2.2 (1.6-2.6) mg/dL Total Bilirubin 0.5 (0.0-1.0) mg/dL AST 12 (5-31) U/L ALT 17 (0-31) U/L Alkaline Phosphatase 61 (39-117) U/L Total Protein 6.8 (6.5-8.0) g/dL Albumin 4.4 (3.5-5.0) g/dL Lipase 15 (8-78) U/L Urine Color Urine Appearance Urine pH (5.0-8.0) Ur Specific [place] (1.005-1.025) Urine Protein (NEG-TRACE) MG/DL Urine Glucose (UA) (NEG) MG/DL Urine Ketones (NEG) MG/DL Urine Blood (NEG) Urine Nitrite (NEG) Ur Leukocyte Esterase (NEG) Urine Test (NEGATIVE) <EVER Drew - Last Filed: 12/01/21 15:19> Lab Results 12/01/21 12/01/21 12/01/21 Range/Units 11:51 11:51 12:17 WBC 7.0 (4.8-10.8) X10*3/uL RBC 4.55 (4.20-5.50) X10*6/uL Hgb 14.2 (12.0-16.0) g/dl Hct 41.5 (37.0-47.0) % MCV 91.2 (80.0-98.0) fL MCH 31.2 (27.0-33.0) pg MCHC 34.2 (31.0-35.0) g/dl RDW 11.7 (11.0-16.0) % Plt Count 242 (160-400) X10*3/uL MPV 10.9 (9.4-12.3) fL Immature Gran % (Auto) 0.1 (0.0-0.4) % Neut % (Auto) 56.4 (45-73) % Lymph % (Auto) 37.4 (20-40) % [place] % (Auto) 5.0 (2-11) % Eos % (Auto) 1.0 (0-4) % Baso % (Auto) 0.1 (0-2) % Lymph # (Auto) 2.6 (1.2-4.9) X10*3/uL [place] # (Auto) 0.4 (0.1-1.2) X10*3/uL Eos # (Auto) 0.1 (0.0-0.4) X10*3/uL Baso # (Auto) 0.0 (0.0-0.2) X10*3/uL Abs Immat Gran (auto) 0.01 (0.00-0.03) X10*3/uL Absolute Neuts (auto) 3.9 (2.0-8.3) x10*3/uL Absolute Nucleated RBC 0.000 (0.0-0.012) X10*3/uL Nucleated RBC % (auto) 0.0 (0.0-0.2) /100WBC Sodium (135-145) mmol/L Potassium (3.3-5.1) mmol/L Chloride (96-108) mmol/L Carbon Dioxide (22-29) mmol/L Anion Gap (12-20) BUN (9-16) mg/dL Creatinine (0.5-1.4) mg/dL Estim Creat Clear Calc Estimated GFR Fasting Glucose (60-99) mg/dL Lactic Acid (0.5-2.0) mmol/L Calcium (8.4-10.2) mg/dL Magnesium (1.6-2.6) mg/dL Total Bilirubin (0.0-1.0) mg/dL AST (5-31) U/L ALT (0-31) U/L Alkaline Phosphatase (39-117) U/L Total Protein (6.5-8.0) g/dL Albumin (3.5-5.0) g/dL Lipase (8-78) U/L Urine Color YELLOW Urine Appearance CLEAR Urine pH 6.0 (5.0-8.0) Ur Specific [place] 1.025 (1.005-1.025) Urine Protein NEG (NEG-TRACE) MG/DL Urine Glucose (UA) NEG (NEG) MG/DL Urine Ketones NEG (NEG) MG/DL Urine Blood NEG (NEG) Urine Nitrite NEG (NEG) Ur Leukocyte Esterase NEG (NEG) Urine Test NEGATIVE (NEGATIVE) 12/01/21 12/01/21 Range/Units 12:17 12:17 WBC (4.8-10.8) X10*3/uL RBC (4.20-5.50) X10*6/uL Hgb (12.0-16.0) g/dl Hct (37.0-47.0) % MCV (80.0-98.0) fL MCH (27.0-33.0) pg MCHC (31.0-35.0) g/dl RDW (11.0-16.0) % Plt Count (160-400) X10*3/uL MPV (9.4-12.3) fL Immature Gran % (Auto) (0.0-0.4) % Neut % (Auto) (45-73) % Lymph % (Auto) (20-40) % [place] % (Auto) (2-11) % Eos % (Auto) (0-4) % Baso % (Auto) (0-2) % Lymph # (Auto) (1.2-4.9) X10*3/uL [place] # (Auto) (0.1-1.2) X10*3/uL Eos # (Auto) (0.0-0.4) X10*3/uL Baso # (Auto) (0.0-0.2) X10*3/uL Abs Immat Gran (auto) (0.00-0.03) X10*3/uL Absolute Neuts (auto) (2.0-8.3) x10*3/uL Absolute Nucleated RBC (0.0-0.012) X10*3/uL Nucleated RBC % (auto) (0.0-0.2) /100WBC Sodium 141 (135-145) mmol/L Potassium 4.3 (3.3-5.1) mmol/L Chloride 109 H (96-108) mmol/L Carbon Dioxide 27 (22-29) mmol/L Anion Gap 9 L (12-20) BUN 8 L (9-16) mg/dL Creatinine 0.74 (0.5-1.4) mg/dL Estim Creat Clear Calc 95.5 Estimated GFR > 60 Fasting Glucose 95 (60-99) mg/dL Lactic Acid 0.5 (0.5-2.0) mmol/L Calcium 9.5 (8.4-10.2) mg/dL Magnesium 2.2 (1.6-2.6) mg/dL Total Bilirubin 0.5 (0.0-1.0) mg/dL AST 12 (5-31) U/L ALT 17 (0-31) U/L Alkaline Phosphatase 61 (39-117) U/L Total Protein 6.8 (6.5-8.0) g/dL Albumin 4.4 (3.5-5.0) g/dL Lipase 15 (8-78) U/L Urine Color Urine Appearance Urine pH (5.0-8.0) Ur Specific [place] (1.005-1.025) Urine Protein (NEG-TRACE) MG/DL Urine Glucose (UA) (NEG) MG/DL Urine Ketones (NEG) MG/DL Urine Blood (NEG) Urine Nitrite (NEG) Ur Leukocyte Esterase (NEG) Urine Test (NEGATIVE) <Marlon Malagon MD - Last Filed: 12/01/21 16:00> Discharge Plan Discharge Clinical Impression: Acute flank pain Sciatic nerve pain Qualifiers: Laterality: left Qualified Code(s): M54.32 - Sciatica, left side <EVER Drew - Last Filed: 12/01/21 15:19> Patient Disposition: Home, Self-Care <EVER Drew - Last Filed: 12/01/21 15:19> Instructions: Sciatica (ED), Abdominal Pain (ED), Lower Back Exercises (ED) <EVER Drew - Last Filed: 12/01/21 15:19> Prescriptions: New cyclobenzaprine 10 mg tablet 10 mg PO TID PRN (Reason: muscle spasm) 7 Days Qty: 21 RF: 0 No Action ondansetron 4 mg tablet,disintegrating 4 mg PO Q6-8H PRN (Reason: nausea and vomiting) Qty: 14 RF: 0 omeprazole 20 mg tablet,delayed release (DR/EC) 20 mg PO DAILY Qty: 30 RF: 0 baclofen 5 mg tablet 5 mg PO BID PRN (Reason: pain (scale score 7-10)) 7 Days Qty: 14 RF: 0 <EVER Drew - Last Filed: 12/01/21 15:19> Referrals: Pepe Rose PA-C [Primary Care Provider] - 2 days Rosi Boyce MD [Physician] - 2 days <EVER Drew - Last Filed: 12/01/21 15:19> Stand Alone Forms: Work/School Release <EVER Drew - Last Filed: 12/01/21 15:19> Interventions: ED Discharge Assessment Last Done: 12/01/21 15:34 <EVER Drew - Last Filed: 12/01/21 15:19> Discharge Date/Time: 12/01/21 15:35 <EVER Drew - Last Filed: 12/01/21 15:19> Print Language: [place] <EVER Drew - Last Filed: 12/01/21 15:19> PMFSH Past Medical History Attestation statement: The following information was validated with the patient. <EVER Drew - Last Filed: 12/01/21 15:19> Source: old records reviewed <EVER Drew - Last Filed: 12/01/21 15:19> Medical History: Medical History No known health problems <EVER Drew - Last Filed: 12/01/21 15:19> Social History Social History: Social History Housing: Apartment Alcohol intake: never Patient Tobacco Use Status: Former Tobacco user Tobacco use type: Cigarette e-Cigarette/Vaping Use: Never Used Second Hand Smoke Exposure: No Use of substances other than those prescribed or required for medical reasons: Yes Substance Use Type: Marijuana Advance Directives: No Advance Directives Information Provided: No Patient : No service: No Current occupational status: employed Current occupational exposures/hazards: No <EEVR Drew - Last Filed: 12/01/21 15:19>
[2021-12-01 12:11] LABS: Appearance Urine CLEAR; Color Urine YELLOW; Glucose Urine UA NEG (NEG); Leukocyte Esterase Urine NEG (NEG); Nitrite Urine NEG (NEG); Specific Gravity - Urine 1.025 (1.005-1.025); Urine Blood NEG (NEG); Urine Ketones NEG (NEG); Urine Protein NEG (NEG-TRACE)
[2021-12-01 12:13] LABS: UPreg QC Valid YES; Urine Pregnancy NEGATIVE (NEGATIVE)
[2021-12-01 12:17] VITALS: BP 107/54; PULSE 63; RESP 18; TEMP 37.2; O2SAT 100
[2021-12-01 12:22] LABS: MANUAL DIFF FLAG NO
[2021-12-01 12:24] LABS: Basophils Percent Auto 0.1 % (0-2); Eosinophils Absolute Auto 0.1 X10*3/uL (0.0-0.4); Hematocrit 41.5 % (37.0-47.0); Hemoglobin 14.2 g/dl (12.0-16.0); Imm Gran Abs Auto 0.01 X10*3/uL (0.00-0.03); Imm Gran Pct Auto 0.1 % (0.0-0.4); Lymphocytes Absolute Auto 2.6 X10*3/uL (1.2-4.9); Lymphocytes Percent Auto 37.4 % (20-40); Mean Corpuscular HGB Conc 34.2 g/dl (31.0-35.0); Mean Corpuscular Hemoglobin 31.2 pg (27.0-33.0); Mean Corpuscular Volume 91.2 fL (80.0-98.0); Mean Platelet Volume 10.9 fL (9.4-12.3); Monocytes Absolute Auto 0.4 X10*3/uL (0.1-1.2); Neutrophils Absolute Auto 3.9 x10*3/uL (2.0-8.3); Neutrophils Percent Auto 56.4 % (45-73); Platelet Count 242 X10*3/uL (160-400); Red Blood Count 4.55 X10*6/uL (4.20-5.50); Red Cell Distribution Width 11.7 % (11.0-16.0)
[2021-12-01] MEDS: Ketorolac Tromethamine 30 MG/ML VIAL IVPUSH (12:29)
[2021-12-01 12:34] LABS: Lactic Acid 0.5 mmol/L (0.5-2.0)
[2021-12-01 12:42] LABS: Alanine Aminotransferase 17 U/L (0-31); Albumin Level 4.4 g/dL (3.5-5.0); Alkaline Phosphatase 61 U/L (39-117); Anion Gap 9 (12-20); Aspartate Amino Transferase 12 U/L (5-31); Bilirubin Total 0.5 mg/dL (0.0-1.0); Blood Urea Nitrogen 8 mg/dL (9-16); Calcium 9.5 mg/dL (8.4-10.2); Carbon Dioxide 27 mmol/L (22-29); Chloride 109 mmol/L (96-108); Creatinine Clr Calc Pharmacy 95.5; Estimated Glomerular Filt Rate > 60; Glucose Fasting 95 mg/dL (60-99); Lipase 15 U/L (8-78); Magnesium 2.2 mg/dL (1.6-2.6); Potassium 4.3 mmol/L (3.3-5.1); Sodium 141 mmol/L (135-145); Total Protein 6.8 g/dL (6.5-8.0)
[2021-12-01] MEDS: iohexoL 350 MG/ML 100 ML INFUS..BTL IV (14:18)
[2021-12-01 15:26] VITALS: BP 104/57; PULSE 59; RESP 16; TEMP 37; O2SAT 100
[2021-12-01] MEDS: Cyclobenzaprine HCl 10 MG TABLET PO (15:30)
== END 2021-12-01 15:35 | disposition home or self-care (01) ==
PROVIDERS: Nurse Practitioner Family; Physician Assistant Medical; Emergency Provider Emergency Medicine; PCP Physician Assistant
DX: M54.32 Sciatica, left side (principal); R10.32 Left lower quadrant pain; M54.50 Low back pain, unspecified; Z87.891 Personal history of nicotine dependence; Z79.899 Other long term (current) drug therapy
CPT/HCPCS: 36415; 74177; 80053; 81003; 81025; 83605; 83690; 83735; 85025; 96372; 96374; 99284; J1885; Q9967

== ENCOUNTER 2023-08-08 20:03 | Emergency (ER) | payer MEDICAID, SELFPAY ==
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
[2023-08-08 20:31] VITALS: BP 110/72; BP 121/70; PULSE 91; PULSE 92; RESP 16; TEMP 36.7; O2SAT 95; O2SAT 96; BMI 25.5
[2023-08-08 22:43] VITALS: BP 118/72; PULSE 86; RESP 18; TEMP 36.7; O2SAT 97
[2023-08-08] MEDS: Acetaminophen 325 MG TABLET 975 MG PO (22:46)
[2023-08-08] MEDS: Ibuprofen 600 MG TABLET PO (22:47)
[2023-08-08] MEDS: Cyclobenzaprine HCl 10 MG TABLET PO (22:47)
== END 2023-08-08 22:52 | disposition home or self-care (01) ==
PROVIDERS: Emergency Provider Emergency Medicine; PCP Physician Assistant
DX: S09.90XA Unspecified injury of head, initial encounter (principal); S13.4XXA Sprain of ligaments of cervical spine, initial encounter; R51.9 Headache, unspecified; M54.2 Cervicalgia; V43.52XA Car driver injured in collision with other type car in traffic accident, initial encounter; Y93.9 Activity, unspecified; Y92.410 Unspecified street and highway as the place of occurrence of the external cause; Y99.9 Unspecified external cause status
CPT/HCPCS: 70450; 72125; 99283; 99284

== ENCOUNTER 2023-08-31 09:47 | Outpatient (AMB) | payer MEDICAID, SELFPAY ==
--- NOTE | 2023-08-31 09:48 | A.OFFPC_ITS ---
Vital Signs 08/31/23 09:49 Height 5 ft 1 in Weight 138 lb 2 oz BMI 26.1 BP 110/72 Blood Pressure Location Lt brachial Position Sitting Pulse 70 Pulse Source Pulse Oximeter Pulse Oximetry (%) 98 Oxygen Delivery Method Room Air Intake Visit Reasons: Annual PE Intake Note: Patient is here today for a physical. Complaint of sciatica pain in left leg and other health issues Entry Level Administrative Assistant Required: No Economic Developer: Not Required per policy Accompanied by: Self / Same As Patient Allergies lamotrigine Adverse Reaction (Unknown, Verified 09/11/23 13:03) Agitated Medication List - Last Reconciled 09/11/23 by Basil Gross MD cyclobenzaprine 10 mg PO TID PRN escitalopram oxalate 10 mg PO DAILY 90 days Tobacco use date assessed: 08/31/23 Dental Screening Dental Screen Date: 08/31/23 Did you have a dental visit in the last 12 months?: Yes Did you have a dental problem in the last 6 months where you did not have access to dental care?: No Was dental information given to patient?: Patient has dentist HPI Annual PE HPI Details 33-year-old female presents to the offic e requesting an annual physical. [facility] Medical History No known health problems Surgical History No pertinent past surgical history Social History Housing: Apartment Alcohol intake: never Patient Tobacco Use Status: Former Tobacco user Tobacco use type: Cigarette e-Cigarette/Vaping Use: Never Used Second Hand Smoke Exposure: No Substance Use Type: Marijuana service: No Current occupational status: employed Current occupational exposures/hazards: No Cognitive needs: No Hearing needs: No Vision needs: No Questionnaire PHQ-9 Over the last 2 weeks, how often have you been bothered by any of the following problems? 1. Little interest or pleasure in doing things: not at all 2. Feeling down, depressed, or hopeless: not at all 3. Trouble falling or staying asleep, or sleeping too much: nearly every day 4. Feeling tired or having little energy: not at all 5. Poor appetite or overeating: not at all 6. Feeling bad about yourself - or that you are a failure or have let yourself or your family down: not at all 7. Trouble concentrating on things, such as reading the newspaper or watching television: not at all 8. Moving or speaking so slowly that other people could have noticed. Or the opposite - being so fidgety or restless that you have been moving around a lot more than usual: not at all 9. Thoughts that you would be better off or of hurting yourself in some way: not at all Total score: 3 Source: Developed by Drs. Daniel Peterson, Flori Hoover, Anand Hair and colleagues, with an educational pravin from [employer]. Thrive Questionnaire Date Thrive assessed: 08/31/23 I am a: Patient What is your living situation today?: I have a steady place to live Within the past 12 months, did the food you bought not last and you didn't have the money to get more?: Never true Within the past 12 months, did you worry whether your food would run out before you got money to buy more?: Never true Do you have trouble paying for medicines?: No Do you have trouble getting transportation to medical appointments?: No Do you have trouble paying your heating and electricity bill?: No Do you have trouble taking care of your child, family member or friend?: No Do you have trouble with day-to-day activities such as bathing, preparing meals, shopping, managing finances, etc.?: No Are you currently unemployed and looking for a job?: No Are you interested in more education?: No Currently or been in a relationship where the following occur: no concerns reported AUDIT C Alcohol Use Questionnaire (AUDIT-C) 1. How often do you have a drink containing alcohol?: Never Total Score: 0 ROSALIO-7 AMB Questionnaire ROSALIO-7 Date ROSALIO - 7 assessed: 08/31/23 Feeling nervous, anxious, or on edge: 3 = Nearly every day Not being able to stop or control worryin = Not at all Worrying too much about different things: 0 = Not at all Trouble relaxin = Nearly every day Being so restless that it is hard to sit still: 0 = Not at all Becoming easily annoyed or irritable: 1 = Several days Feeling afraid as if something awful might happen: 0 = Not at all Total ROSALIO-7 score (0-4 normal; 5-9 mild; 10-14 moderate; 15-21 severe): 7 Source: Developed by Drs. Daniel Peterson, Flori Hoover, Anand Hair and colleagues, with an educational pravin from [employer]. Physical exam (Primary Care) Vital Signs: Last Vital Signs Pulse 70 08/31/23 09:49 BP 110/72 08/31/23 09:49 Pulse Ox 98 08/31/23 09:49 Oxygen Delivery Method Room Air 08/31/23 09:49 BMI result Body Mass Index 26.1 Tobacco/Smoking Status: Tobacco use Status Tobacco use date assessed 08/31/23 08/31/23 09:56 Patient Tobacco Use Status Former Tobacco user 08/31/23 09:56 Tobacco use type Cigarette 08/31/23 09:56 e-Cigarette/Vaping Use Never Used 08/31/23 09:56 PHQ-9: PHQ-9 Score PHQ-9: Total score 3 08/31/23 09:56 Thrive Assessment: Date of Thrive Assessment Date Thrive assessed 08/31/23 08/31/23 09:56 Currently or been in a relationship where the following occur: no concerns reported Const General: cooperative and healthy appearing Nutritional Appearance: well nourished Orientation/consciousness: patient oriented x3 Limitations: no limitations HENMT Head: Yes normal to inspection Eyes General: appearance normal, both eyes and all related structures Neck Neck: Yes normal visual inspection Chest Chest palpation & inspection: normal palpation of entire chest wall Resp Effort & Inspection: normal respiratory effort Neuro General: patient oriented x3 Assessment and Plan Assessment & Plan (1) Generalized anxiety disorder: Code(s): F41.1 - Generalized anxiety disorder Plan: Continue medications at same dosage (2) Annual physical exam: Code(s): Z00.00 - Encounter for general adult medical examination without abnormal findings Plan: Blood work reviewed. Orders: Orders Complete Blood Count no Diff 08/31/23 F41.1 - Generalized anxiety disorder UA and rflx microscopic 08/31/23 F41.1 - Generalized anxiety disorder Basic Metabolic Panel 08/31/23 F41.1 - Generalized anxiety disorder Lipid Panel 08/31/23 F41.1 - Generalized anxiety disorder Liver Panel 08/31/23 F41.1 - Generalized anxiety disorder Thyroid Stimulating Hormone 08/31/23 F41.1 - Generalized anxiety disorder Erythrocyte Sedimentation Rate 08/31/23 F41.1 - Generalized anxiety disorder Medications: New escitalopram oxalate 10 mg PO DAILY 90 tabs 1RF 90 days Refilled cyclobenzaprine 10 mg PO TID PRN 10 tabs 0RF muscle spasm Discontinued omeprazole Discontinued Reason: Patient Completed Course 20 mg PO DAILY 30 tabs 0RF Coding Level of Care Code Est Pt Prev Care 18-39y(32631) Diagnoses Generalized anxiety disorder F41.1 Annual physical exam Z00.00
[2023-08-31 09:49] VITALS: BP 110/72; PULSE 70; O2SAT 98; BMI 26.1
== END 2023-08-31 10:24 | disposition home or self-care (01) ==
PROVIDERS: PCP Physician Assistant; Visit Provider Internal Medicine
DX: F41.1 Generalized anxiety disorder (principal); Z00.00 Encounter for general adult medical examination without abnormal findings
CPT/HCPCS: 99395

== ENCOUNTER 2023-10-21 16:24 | Outpatient (REF) | payer OTHER, SELFPAY ==
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
== END 2023-10-21 16:25 | disposition home or self-care (01) ==
LOC: HO.XRAY 16:24
PROVIDERS: PCP Internal Medicine; Visit Provider Chiropractor
DX: S20.212A Contusion of left front wall of thorax, initial encounter (principal); S33.5XXA Sprain of ligaments of lumbar spine, initial encounter; S13.4XXA Sprain of ligaments of cervical spine, initial encounter; V89.2XXA Person injured in unspecified motor-vehicle accident, traffic, initial encounter
CPT/HCPCS: 71101

== ENCOUNTER 2024-07-30 10:02 | Outpatient (AMB) | payer OTHER, SELFPAY ==
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
[2024-07-30 10:06] VITALS: BP 130/70; PULSE 75; O2SAT 98; BMI 28.4
== END 2024-07-30 12:35 | disposition home or self-care (01) ==
PROVIDERS: PCP Internal Medicine; Visit Provider Internal Medicine
DX: S39.92XA Unspecified injury of lower back, initial encounter (principal); R20.2 Paresthesia of skin

== ENCOUNTER 2024-07-30 10:02 | Outpatient (REF) | payer OTHER, SELFPAY ==
[2024-07-30 11:42] LABS: Hematocrit 40.4 % (37.0-47.0); Hemoglobin 14.4 g/dl (12.0-16.0); Mean Corpuscular HGB Conc 35.6 g/dl (31.0-35.0); Mean Corpuscular Hemoglobin 32.2 pg (27.0-33.0); Mean Corpuscular Volume 90.4 fL (80.0-98.0); Mean Platelet Volume 11.1 fL (9.4-12.3); Platelet Count 251 X10*3/uL (160-400); Red Blood Count 4.47 X10*6/uL (4.20-5.50); Red Cell Distribution Width 11.9 % (11.0-16.0); White Blood Count 7.9 X10*3/uL (4.8-10.8)
[2024-07-30 12:00] LABS: Appearance Urine Cloudy; Color Urine Yellow; Glucose Urine UA Negative (Negative); Leukocyte Esterase Urine Small (1+) (Negative); Nitrite Urine Negative (Negative); Specific Gravity - Urine 1.025 (1.005-1.025); UMIC TRIGGER UA YES; Urine Blood Negative (Negative); Urine Ketones Negative (Negative); Urine Protein Trace mg/dL (Neg-Trace)
[2024-07-30 12:29] LABS: Erythrocyte Sedimentation Rate 2 MM/HR (0-20)
[2024-07-30 12:36] LABS: Alanine Aminotransferase 18 U/L (0-31); Albumin Level 4.3 g/dL (3.5-5.0); Alkaline Phosphatase 64 U/L (39-117); Anion Gap 10 (12-20); Aspartate Amino Transferase 13 U/L (5-31); Bilirubin Direct 0.2 mg/dL (0.0-0.5); Bilirubin Total 0.5 mg/dL (0.0-1.0); Blood Urea Nitrogen 7 mg/dL (9-16); Calcium 9.2 mg/dL (8.4-10.2); Carbon Dioxide 28 mmol/L (22-29); Chloride 108 mmol/L (96-108); Cholesterol 147 mg/dL (<200); Estimated Glomerular Filt Rate > 60; Glucose Random 96 mg/dL (60-115); HDL Cholesterol 54 mg/dL (>40); LDL Cholesterol Calculated 81 mg/dL (<100); Potassium 3.6 mmol/L (3.3-5.1); Sodium 142 mmol/L (135-145); Total Protein 6.7 g/dL (6.5-8.0); Triglycerides 64 mg/dL (<150)
[2024-07-30 13:03] LABS: Bacteria Urine 4+ (None Seen); Hyaline Casts Urine 0-2 /LPF (0-2); RBC Urine 0-2 /HPF (0-2); WBC Urine 21-50 /HPF (0-5)
[2024-08-02 05:48] LABS: TS Negative Control Passed; TS Panel A 0; TS Panel B 0; TS Positive Control Passed; TSpotTB Negative (Negative)
== END 2024-07-30 10:03 | disposition home or self-care (01) ==
LOC: HO.LAB 10:02
PROVIDERS: PCP Internal Medicine; Visit Provider Internal Medicine
DX: Z02.0 Encounter for examination for admission to educational institution (principal); F41.1 Generalized anxiety disorder
CPT/HCPCS: 36415; 80048; 80061; 80076; 81001; 81003; 84443; 85027; 85652; 86481

== ENCOUNTER → 2024-10-08 08:27 | Outpatient (BNVA) | payer OTHER, SELFPAY | PROVIDERS: PCP Internal Medicine; Visit Provider Internal Medicine ==

== ENCOUNTER 2024-10-08 08:36 | Outpatient (AMB) | payer OTHER, SELFPAY ==
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
[2024-10-08 08:41] VITALS: BP 88/58; PULSE 73; O2SAT 97; BMI 27.8
== END 2024-10-08 10:22 | disposition home or self-care (01) ==
LOC: HO.HMCH 08:36
PROVIDERS: PCP Physician Assistant Medical; Visit Provider Physician Assistant Medical
DX: S39.92XA Unspecified injury of lower back, initial encounter (principal); V87.7XXA Person injured in collision between other specified motor vehicles (traffic), initial encounter; R20.2 Paresthesia of skin

== ENCOUNTER 2024-10-10 14:00 | Outpatient (RCR) | payer OTHER, SELFPAY ==
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
--- NOTE | 2024-12-03 07:18 | MHC.PT.DC ---
[facility] [place] Office [place] Office [place] Office [address] Roby Fleming [address] [phone] F: [phone] F: [phone] F: [phone] F: [phone] Physical Therapy Discharge Report Diagnosis: LEFT LOWER BACK INJURY Date of Surgery: Date of Evaluation: 08/29/24 Date of Discharge: 12/03/24 Treatments to Date: 5 Cancellations to Date: 5 No Shows to Date: 1 Discharge Status: Improved Function Independent with HEP Visit Non-compliance Discharge Summary: ATTHE LAST ATTENDED PT VISIT, JB BENEFITTED FROM CONSISTENT VC/TC TO FACILITATE SELF-CORRECTION TO NEUTRAL PELVIS AND REDUCE EFFECTS OF COMPENSATORY HYPERLORDOTIC LUMBAR SPINE. WE HAD BEEN WORKING ON CORE ENGAGEMENT WITH HER HEP AND ADLs. SHE WAS BENEFITTING FROM PT, HOWEVER, SHE DID NOT ATTEND HER LAST FEW SCHED APPTS AND IS D/C PER DEPT ATTENDANCE POLICY. Electronically signed by: JACOB ESTRADA,PT Please sign and return to therapist. Thank you for your referral.
== END 2024-12-03 07:18 | disposition home or self-care (01) ==
LOC: HO.PT 14:00
PROVIDERS: PCP Internal Medicine; Visit Provider Internal Medicine
DX: S39.92XA Unspecified injury of lower back, initial encounter (principal)
CPT/HCPCS: 97110; 97140; 97162

== ENCOUNTER 2024-10-15 09:02 | Outpatient (AMB) | payer OTHER, SELFPAY ==
[2024-10-15 09:15] VITALS: BP 110/64; PULSE 76; O2SAT 97; BMI 27.3
--- NOTE | 2024-10-15 09:15 | A.OFFPC_ITS ---
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 Accompanied by: Self / Same As Patient Allergies lamotrigine Adverse Reaction (Unknown, Verified 10/15/24 09:51) Agitated Medication List - Last Reconciled 10/15/24 by Nevaeh Carcamo PA-C cyclobenzaprine 10 mg PO TID PRN escitalopram oxalate 10 mg PO DAILY 90 days Tobacco use date assessed: 10/15/24 Dental Screening Dental Screen Date: 10/15/24 Did you have a dental visit in the last 12 months?: Yes Did you have a dental problem in the last 6 months where you did not have access to dental care?: No Was dental information given to patient?: Patient has dentist [facility] Medical History (Updated 10/15/24 @ 09:52 by Nevaeh Carcamo PA-C) URI (upper respiratory infection) Neuropathy Annual physical exam Paresthesia Lower back injury Generalized anxiety disorder No known health problems Surgical History No pertinent past surgical history Social History Housing: Apartment Alcohol intake: never Patient Tobacco Use Status: Former Tobacco user Tobacco use type: Cigarette e-Cigarette/Vaping Use: Never Used Second Hand Smoke Exposure: No Substance Use Type: Marijuana service: No Current occupational status: employed and student Current occupational exposures/hazards: No Cognitive needs: No Hearing needs: No Vision needs: No Questionnaire PHQ-9 Over the last 2 weeks, how often have you been bothered by any of the following problems? 1. Little interest or pleasure in doing things: not at all 2. Feeling down, depressed, or hopeless: not at all 3. Trouble falling or staying asleep, or sleeping too much: not at all 4. Feeling tired or having little energy: not at all 5. Poor appetite or overeating: not at all 6. Feeling bad about yourself - or that you are a failure or have let yourself or your family down: not at all 7. Trouble concentrating on things, such as reading the newspaper or watching television: not at all 8. Moving or speaking so slowly that other people could have noticed. Or the opposite - being so fidgety or restless that you have been moving around a lot more than usual: not at all 9. Thoughts that you would be better off or of hurting yourself in some way: not at all Total score: 0 Depression Screening Interpretation: Negative Depression Screening Done: Yes Source: Developed by Drs. Daniel Peterson, Flori Hoover, Anand Hair and colleagues, with an educational pravin from [employer]. Thrive Questionnaire Date Thrive assessed: 10/15/24 I am a: Patient What is your living situation today?: I have a steady place to live Within the past 12 months, did the food you bought not last and you didn't have the money to get more?: Never true Within the past 12 months, did you worry whether your food would run out before you got money to buy more?: Never true Do you have trouble paying for medicines?: No Do you have trouble getting transportation to medical appointments?: No Do you have trouble paying your heating and electricity bill?: No Do you have trouble taking care of your child, family member or friend?: No Do you have trouble with day-to-day activities such as bathing, preparing meals, shopping, managing finances, etc.?: No Are you currently unemployed and looking for a job?: No Are you interested in more education?: No Please select the resources that you would like help with: None Currently or been in a relationship where the following occur: No concerns reported THRIVE Score: 0 AUDIT C Alcohol Use Questionnaire (AUDIT-C) 1. How often do you have a drink containing alcohol?: Monthly or less 2. How many drinks containing alcohol do you have on a typical day when you are drinking?: 1 or 2 3. How often do you have six or more drinks on one occasion?: Never Total Score: 1 ROSALIO-7 AMB Questionnaire ROSALIO-7 Date ROSALIO - 7 assessed: 10/15/24 Feeling nervous, anxious, or on edge: 0 = Not at all Not being able to stop or control worryin = Not at all Worrying too much about different things: 0 = Not at all Trouble relaxin = Not at all Being so restless that it is hard to sit still: 0 = Not at all Becoming easily annoyed or irritable: 0 = Not at all Feeling afraid as if something awful might happen: 0 = Not at all Total ROSALIO-7 score (0-4 normal; 5-9 mild; 10-14 moderate; 15-21 severe): 0 Source: Developed by Drs. Daniel Peterson, Flori Hoover, Anand Hair and colleagues, with an educational pravin from [employer]. Physical exam (Primary Care) Vital Signs: Last Vital Signs Pulse 76 10/15/24 09:15 BP 110/64 10/15/24 09:15 Pulse Ox 97 10/15/24 09:15 Oxygen Delivery Method Room Air 10/15/24 09:15 BMI result Body Mass Index 27.3 Tobacco/Smoking Status: Tobacco use Status Tobacco use date assessed 10/15/24 10/15/24 09:16 Patient Tobacco Use Status Former Tobacco user 10/15/24 09:16 Tobacco use type Cigarette 10/15/24 09:16 e-Cigarette/Vaping Use Never Used 10/15/24 09:16 PHQ-9: PHQ-9 Score PHQ-9: Total score 0 10/15/24 09:20 Depression Screening Interpretation: Negative Thrive Assessment: Date of Thrive Assessment Date Thrive assessed 10/15/24 10/15/24 09:16 Currently or been in a relationship where the following occur: No concerns reported Coding Level of Care Code Est Pt Prev Care [id number]([id number]) Diagnoses Annual physical exam Z00.00 Paresthesia R20.2 Neuropathy G62.9 URI (upper respiratory infection) J06.9 Assessment & Plan Assessment & Plan (1) Annual physical exam: Code(s): Z00.00 - Encounter for general adult medical examination without abnormal findings Category: Medical Plan: see below (2) Paresthesia: Code(s): R20.2 - Paresthesia of skin Category: Medical Plan: see below (3) Neuropathy: Code(s): G62.9 - Polyneuropathy, unspecified Category: Medical Plan: see below (4) URI (upper respiratory infection): Code(s): J06.9 - Acute upper respiratory infection, unspecified Category: Medical Plan: see below Plan Plan - Annual Physical Exam: Patient had normal labs on 07/30/2024. Patient to return in 6-12 months. - Paresthesias/Neuropathy: Follow up with neurology for continued evaluation of right-sided numbness. - Cough and possible lower respiratory infection: Consider OTC medications for Upper respiratory infection if warranted and monitor for signs of increased severity, such as fever, blood in sputum, or worsening shortness of breath. - Collarbone pain: Recommend observation for any swelling or changes and assess further if symptoms persist or worsen. Scribe Plan - Not visible on output: History of Present Illness The patient is a 34-year-old female presenting for her annual physical exam. In addition continues to have paresthesias and pain on the left side, worsening collarbone pain, and a cough with green sputum. The Left-sided numbness has p ersisted since the last visit, and the patient has also begun experiencing pain in the collarbone without any recent trauma. The patient reports an increase in the pain's severity, describing it as worsening over time. Additionally, the patient started experiencing a cough a day before the visit, accompanied by tightness in the chest and green sputum, suggestive of an infection. The patient denies any fever, chest pain, or shortness of breath. The patient has been referred to a neurologist but has not yet had an appointment. The patient was previously prescribed medication for nerves and muscles, which she ceased taking early in her treatment. The patient experiences hot flashes and expresses significant distress regarding her condition, impacting her daily activities and mood. Social History - The patient reports a significant impact on daily activities, including not performing usual personal care routines due to symptoms. - The patient recently visited midwives, presumed for care, indicating recent childbirth x 4 years ago. Review of Systems - General: Reports hot flashes, denies fever - Respiratory: Reports cough with green sputum, denies shortness of breath or c hest pain - Neurological: Reports right-sided numbness and pain to entire right side of body and collarbone pain, denies recent falls or trauma - Musculoskeletal: Reports worsening pain in the collarbone Physical Exam Appearance: Alert. Oriented X3. No acute distress. Head: Normal external exam. Normocephalic. Atraumatic. Eyes: Pupils are equal, round, and reactive to light. Extraocular movements intact. Conjunctiva and sclera normal. Eyelids normal. Ears: Normal hearing. Throat: Pharynx normal. Uvula midline. Moist mucous membranes. Neck: Normal inspection. Neck supple. Full range of motion. No adenopathy. Thyroid Normal. No meningeal signs. No neck mass noted. Left collarbone tenderness noted. Cardiovascular: Normal heart rate and rhythm. Heart sound normal. No murmurs noted. Pulses normal throughout. Respiratory: No respiratory distress. Painless inspiration. Breath sounds normal. No wheezes/rales/rhonchi noted. Mild TTP to left Collar bone and STS. Otherwise the rest of the chest is nontender. No accessory muscle usage noted or decreased air movement noted. Chest tightness noted. Cough present with green sputum. Abdomen: Soft and nontender. No distention noted. No organomegaly noted. Back: Full range of motion noted. Skin: Skin warm and dry. Normal skin color. Normal skin turgor. No rashes/lesions/lacerations noted. Hot flashes reported. Extremities: Extremities exhibit normal range of motion. Extremities nontender. Neuro: Oriented X 3. No motor deficit. No sensory deficit. Reflexes normal. Right side numbness reported. Plan - Annual Physical Exam: Patient had normal labs on 07/30/2024. Patient to return in 6-12 months. - Paresthesias/Neuropathy: Follow up with neurology and Physical therapy evaluation for continued evaluation of Left-sided numbness. - Cough and possible lower respiratory infection: Consider OTC medications for Upper respiratory infection if warranted and monitor for signs of increased severity, such as fever, blood in sputum, or worsening shortness of breath. - Collarbone pain: Recommend observation for any swelling or changes and assess further if symptoms persist or worsen. Patient was informed and verbally consented to the use of an ambient scribe for clinic note documentation during this visit. Discussion Notes We discussed the persistent nature of the patient's neuropathy and the importance of seeing a neurologist for specialized evaluation. I advised the patient on monitoring her symptoms related to the cough and sputum and to return if symptoms like fever or worsening respiratory symptoms occur. Regarding her collarbone pain, we discussed possible causes and the need to seek care if symptoms significantly change. We also discussed her current state of emotional distress related to her physical condition and its impact on her daily life. Consent for referral to neurology was confirmed. Patient Instructions - Monitor symptoms, especially breathing difficulties or changes in sputum color. - Return immediately if experiencing fever or if symptoms worsen. - Contact neurology to schedule an appointment for numbness evaluation. - Consider non-pharmacological support for pain, such as localized heat application, unless contraindicated. - Maintain hydration and rest as much as possible to support recovery from the respiratory symptoms.
== END 2024-10-15 10:36 | disposition home or self-care (01) ==
LOC: HO.HMCH 09:02
PROVIDERS: PCP Physician Assistant Medical; Visit Provider Physician Assistant Medical
DX: Z00.00 Encounter for general adult medical examination without abnormal findings (principal); R20.2 Paresthesia of skin; G62.9 Polyneuropathy, unspecified; J06.9 Acute upper respiratory infection, unspecified

== ENCOUNTER → 2024-10-15 09:02 | Outpatient (BNVA) | payer OTHER, SELFPAY | PROVIDERS: PCP Physician Assistant Medical; Visit Provider Physician Assistant Medical ==

== ENCOUNTER 2024-11-09 11:31 | Emergency (ER) | payer OTHER, SELFPAY ==
[2024-11-09 11:41] VITALS: BP 116/54; PULSE 80; RESP 20; TEMP 36.9; O2SAT 97; BMI 27.6
--- NOTE | 2024-11-09 11:44 | ED.GENADULT ---
HPI - General Adult General Chief complaint: Abdominal Pain Stated complaint: Shaky, body pains Time Seen by Provider: 11/09/24 16:27 Source: patient Mode of arrival: ambulatory Limitations: no limitations History of Present Illness ED Provider: Boy Dumont PA-C HPI narrative: 34 yo female with history of fibromyalgia, neuropathy, anxiety, who presents to the ER for evaluation of bilateral lower rib pain, N/V/D, headaches, body aches and cough. She had a recent exposure to a client who was sick with a cough. She reports feeling weak and shakey unable to tolerate anything but liquids due to nausea. Vomited 3x in the last 3 days. She reports hot and cold flashes, unknown if she has had a temp or not. She is waiting to see a neurologist for brain fog, numbness/neuropathy symptoms, headaches. recently saw her PCP for this. MD complaint: N/V/D, rib pain Onset (ago): day(s) (3) Location: head, chest and abdomen Radiation: non-radiation Severity: moderate Quality: aching Pain Consistency: constant Relieving factors: none Exacerbating factors: none Associated symptoms: confusion, cough, fever/chills, headaches, loss of appetite, malaise, nausea/vomiting and weakness Treatments prior to arrival: none Related Data Previous Rx's ?Medication ?Instructions ?Recorded cyclobenzaprine 10 mg tablet 10 mg PO TID PRN muscle spasm #10 08/31/23 tabs escitalopram oxalate 10 mg tablet 10 mg PO DAILY 90 days #90 tabs 08/31/23 ondansetron 4 mg disintegrating 4 mg PO Q8H PRN nausea and 11/09/24 tablet vomiting #7 tabs Allergies Allergy/AdvReac Type Severity Reaction Status Date / Time lamotrigine AdvReac Unknown Agitated Verified 11/09/24 11:45 Review of Systems Review of Systems: Yes all other systems are reviewed and are negative [facility] Past Medical History Medical History (Updated 11/09/24 @ 17:39 by EVER Garza) URI (upper respiratory infection) Neuropathy Annual physical exam Paresthesia Lower back injury Generalized anxiety disorder No known health problems Surgical History No pertinent past surgical history Social History Social History (Reviewed 10/15/24 @ 09:16 by MARVEL Sánchez Housing: Apartment Alcohol intake: never Patient Tobacco Use Status: Former Tobacco user Tobacco use type: Cigarette e-Cigarette/Vaping Use: Never Used Second Hand Smoke Exposure: No Substance Use Type: Marijuana Advance Directives: No Advance Directives Information Provided: No Do you have a plan to hurt others: No Plan service: No Current occupational status: employed and student Current occupational exposures/hazards: No Cognitive needs: No Hearing needs: No Vision needs: No Physical Exam ED Vital Signs: Vital Signs - 24 hr 11/09/24 11:41 11/09/24 16:31 Temperature 98.5 F 98.1 F Pulse Rate 80 73 Respiratory Rate 20 16 Blood Pressure 116/54 L 118/46 L Pulse Oximetry 97 99 Oxygen Delivery Method Room Air Room Air BMI result Body Mass Index 27.6 Appearance: Alert. Oriented X3. No acute distress. Head: normocephalic, atraumatic. Eyes: Pupils equal, round and reactive to light. ENT: Pharynx normal. No tonsillar swelling or exudate. Neck: Normal inspection. Neck supple. CVS: Normal heart rate and rhythm. Pulses normal. Respiratory: No respiratory distress. Breath sounds normal. Bilateral lower rib tenderness, no ecchymosis, no crepitus. Abdomen: Soft and nontender. +BS x4 Skin: Skin warm and dry. Normal skin color. Normal skin turgor. No rashes. Extremities: No lower extremity edema. No joint swelling. Neuro/psych: Oriented X 3. No motor deficit. No sensory deficit. CN II-XII intact. Normal speech and cognition. Course Course Course Narrative: This is a rapid medical exam performed by Eloina Chávez NP: Additional HPI, ROS, PE not included below will be deferred to primary provider. Patient is a 34-year-old female presenting with complaint opf nausea, vomiting, cough, body aches, tremors for the past few days. 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 Plan: viral serology, labs Medications Administered Discontinued Medications Generic Name Dose Route Start Last Admin Trade Name Freq PRN Reason Stop Dose Admin Sodium Chloride 1,000 mls @ 999 mls/hr 11/09/24 16:45 11/09/24 17:23 Ns IVCONT 11/09/24 17:45 999 mls/hr .Q1H1M XANDER Administration Ketorolac Tromethamine 30 mg 11/09/24 16:35 11/09/24 17:24 Ketorolac Tromethamine 30 Mg/Ml Vial IVPUSH 11/09/24 16:36 30 mg ONCE ONE Administration Ondansetron HCl 4 mg 11/09/24 16:35 11/09/24 17:23 Ondansetron Hcl 4 Mg/2 Ml Vial IVPUSH 11/09/24 16:36 4 mg ONCE ONE Administration Medical Decision Making Medical Decision Making [facility] Narrative: 34-year-old female presents to the ER for evaluation of multiple complaints including nausea, vomiting, diarrhea, bilateral lower rib pain, poor p.o. intake, shakiness and brain fog. Press symptoms and present for 3 days. She is asking for IV fluids and antiemetics, she is tolerating oral fluids. Lab workup today is reassuring with no leukocytosis, normal CBC. LFTs and other lab workup today is reassuring. She is negative for COVID, flu, RSV. Patient was given IV fluids, Zofran and Toradol with improvement in her symptoms. Most likely a viral gastroenteritis. Patient counseled and is stable for discharge home with supportive care and antiemetics. Differential Diagnosis Differential Diagnoses: The differential diagnosis associated with the presentation includes gastroenteritis, covid, flu, viral illness, cholecystitis Admission/Observation Consideration of admission/observation: Escalation of care including admission/observation considered Lab Data [facility] Lab Attestation statement: I reviewed the patient's lab results. As above 11/09/24 13:55 11/09/24 13:55 Labs: Lab Results 11/09/24 11/09/24 Range/Units 13:55 16:22 WBC 8.9 (4.8-10.8) X10*3/uL RBC 4.33 (4.20-5.50) X10*6/uL Hgb 14.0 (12.0-16.0) g/dl Hct 38.6 (37.0-47.0) % MCV 89.1 (80.0-98.0) fL MCH 32.3 (27.0-33.0) pg MCHC 36.3 H (31.0-35.0) g/dl RDW 11.6 (11.0-16.0) % Plt Count 242 (160-400) X10*3/uL MPV 10.8 (9.4-12.3) fL Immature Gran % (Auto) 0.2 (0.0-0.4) % Neut % (Auto) 57.1 (45-73) % Lymph % (Auto) 35.9 (20-40) % [place] % (Auto) 5.4 (2-11) % Eos % (Auto) 1.1 (0-4) % Baso % (Auto) 0.3 (0-2) % Lymph # (Auto) 3.2 (1.2-4.9) X10*3/uL [place] # (Auto) 0.5 (0.1-1.2) X10*3/uL Eos # (Auto) 0.1 (0.0-0.4) X10*3/uL Baso # (Auto) 0.0 (0.0-0.2) X10*3/uL Abs Immat Gran (auto) 0.02 (0.00-0.03) X10*3/uL Absolute Neuts (auto) 5.1 (2.0-8.3) x10*3/uL Absolute Nucleated RBC 0.000 (0.0-0.012) X10*3/uL Nucleated RBC % (auto) 0.0 (0.0-0.2) /100WBC Sodium 140 (135-145) mmol/L Potassium 3.8 (3.3-5.1) mmol/L Chloride 109 H (96-108) mmol/L Carbon Dioxide 25 (22-29) mmol/L Anion Gap 10 L (12-20) BUN 6 L (9-16) mg/dL Creatinine 0.72 (0.5-1.4) mg/dL Estim Creat Clear Calc 92.9 Estimated GFR > 60 Random Glucose 89 (60-115) mg/dL Calcium 8.9 (8.4-10.2) mg/dL Total Bilirubin 0.8 (0.0-1.0) mg/dL AST 18 (5-31) U/L ALT 23 (0-31) U/L Alkaline Phosphatase 75 (39-117) U/L Total Protein 7.2 (6.5-8.0) g/dL Albumin 4.6 (3.5-5.0) g/dL Beta HCG, Quant < 2 mIU/mL Urine Color Dark Yellow Urine Appearance Clear Urine pH 6.5 (5.0-9.0) Ur Specific [place] >= 1.030 H (1.005-1.025) Urine Protein Trace (Neg-Trace) mg/dL Urine Glucose (UA) Negative (Negative) mg/dL Urine Ketones 80 (Negative) mg/dL Urine Blood Negative (Negative) Urine Nitrite Negative (Negative) Ur Leukocyte Esterase Negative (Negative) Influenza Type A (PCR) NEGATIVE (Negative) Influenza Type B (PCR) NEGATIVE (Negative) RSV RNA Qual (PCR) NEGATIVE (Negative) SARS-CoV-2 RNA (RT-PCR) NEGATIVE (Negative) External Record Review External record reviewed: Prior outpatient labs and Prior outpatient radiology Tests considered The following testing was considered but not selected: Right upper quadrant ultrasound was considered however symptoms are bilateral and low suspicion for acute cholecystitis Prescription Management I considered prescription management with: Pain Medication and Antibiotic Critical Care Time Critical Care Time Critical Care Time: No Discharge Plan Discharge Clinical Impression: Gastroenteritis Patient Disposition: Home, Self-Care Instructions: Gastroenteritis (DC) Additional Instructions: You lab workup today was unremarkable. Your urine test was negative for infection and . You most likely have a viral GI bug also known as gastroenteritis. Treatment is supportive care, symptoms usually resolve on their own in 48-72 hours. Recommend rest and plenty of oral hydration. Stick to a bland diet like soup and toast while you are not feeling well. Take the prescribed medication as needed for nausea. Recommend over the counter Pepto Bismol or Imodium for upset stomach and diarrhea. Follow up with your doctor as needed. If you develop new or worsening symptoms call 911 or come back to the ER for further evaluation. Prescriptions: New ondansetron 4 mg tablet,disintegrating 4 mg PO Q8H PRN (Reason: nausea and vomiting) Qty: 7 0RF No Action cyclobenzaprine 10 mg tablet 10 mg PO TID PRN (Reason: muscle spasm) Qty: 10 0RF escitalopram oxalate 10 mg tablet 10 mg PO DAILY 90 Days Qty: 90 1RF Print Language: Vietnamese
[2024-11-09 14:00] LABS: MANUAL DIFF FLAG NO
[2024-11-09 14:03] LABS: Basophils Percent Auto 0.3 % (0-2); Eosinophils Absolute Auto 0.1 X10*3/uL (0.0-0.4); Eosinophils Percent Auto 1.1 % (0-4); Hematocrit 38.6 % (37.0-47.0); Imm Gran Abs Auto 0.02 X10*3/uL (0.00-0.03); Imm Gran Pct Auto 0.2 % (0.0-0.4); Lymphocytes Absolute Auto 3.2 X10*3/uL (1.2-4.9); Lymphocytes Percent Auto 35.9 % (20-40); Mean Corpuscular HGB Conc 36.3 g/dl (31.0-35.0); Mean Corpuscular Hemoglobin 32.3 pg (27.0-33.0); Mean Corpuscular Volume 89.1 fL (80.0-98.0); Mean Platelet Volume 10.8 fL (9.4-12.3); Monocytes Absolute Auto 0.5 X10*3/uL (0.1-1.2); Monocytes Percent Auto 5.4 % (2-11); Neutrophils Absolute Auto 5.1 x10*3/uL (2.0-8.3); Neutrophils Percent Auto 57.1 % (45-73); Platelet Count 242 X10*3/uL (160-400); Red Blood Count 4.33 X10*6/uL (4.20-5.50); Red Cell Distribution Width 11.6 % (11.0-16.0); White Blood Count 8.9 X10*3/uL (4.8-10.8)
[2024-11-09 14:42] LABS: Alanine Aminotransferase 23 U/L (0-31); Albumin Level 4.6 g/dL (3.5-5.0); Alkaline Phosphatase 75 U/L (39-117); Anion Gap 10 (12-20); Aspartate Amino Transferase 18 U/L (5-31); Bilirubin Total 0.8 mg/dL (0.0-1.0); Blood Urea Nitrogen 6 mg/dL (9-16); Calcium 8.9 mg/dL (8.4-10.2); Carbon Dioxide 25 mmol/L (22-29); Chloride 109 mmol/L (96-108); Creatinine Clr Calc Pharmacy 92.9; Estimated Glomerular Filt Rate > 60; Glucose Random 89 mg/dL (60-115); HCG Quantitative < 2 mIU/mL; Potassium 3.8 mmol/L (3.3-5.1); Sodium 140 mmol/L (135-145); Total Protein 7.2 g/dL (6.5-8.0)
[2024-11-09 14:49] LABS: Influenza A PCR NEGATIVE (Negative); Influenza B PCR NEGATIVE (Negative); Resp Syncy Virus RNA Qual PCR NEGATIVE (Negative); SARS COV2 PCR INHOUSE NEGATIVE (Negative)
[2024-11-09 16:31] VITALS: BP 118/46; PULSE 73; RESP 16; TEMP 36.7; O2SAT 99
[2024-11-09 16:31] LABS: Appearance Urine Clear; Color Urine Dark Yellow; Glucose Urine UA Negative (Negative); Leukocyte Esterase Urine Negative (Negative); Nitrite Urine Negative (Negative); PH 6.5 (5.0-9.0); Specific Gravity - Urine >= 1.030 (1.005-1.025); Urine Blood Negative (Negative); Urine Ketones 80 mg/dL (Negative); Urine Protein Trace mg/dL (Neg-Trace)
[2024-11-09] MEDS: 0.9 % Sodium Chloride 1,000 ML 999 ML IVCONT (17:23)
[2024-11-09] MEDS: ondansetron HCL 4 MG/2 ML VIAL IVPUSH (17:23)
[2024-11-09] MEDS: Ketorolac Tromethamine 30 MG/ML VIAL IVPUSH (17:24)
--- NOTE | 2024-11-09 17:27 | PC.NURSE ---
pt a&ox3, vss, pt c/o generalized body aches/pain in rib area, iv inserted, pt medicated for nausea and 10/10 pain, plan of care ongoing
[2024-11-09 18:29] VITALS: BP 99/34; PULSE 78; RESP 16; TEMP 36.5; O2SAT 98
[2024-11-09 21:06] VITALS: BP 102/42; PULSE 77; RESP 16; TEMP 36.4; O2SAT 99
== END 2024-11-09 21:07 | disposition home or self-care (01) ==
PROVIDERS: Registered Nurse Emergency; Emergency Provider Emergency Medicine
DX: K52.9 Noninfective gastroenteritis and colitis, unspecified (principal); R05.9 Cough, unspecified; Z03.818 Encounter for observation for suspected exposure to other biological agents ruled out; Z87.891 Personal history of nicotine dependence
CPT/HCPCS: 0241U; 80053; 81003; 84702; 85025; 96361; 96374; 96375; 99284; J1885; J2405